=== PATIENT | male | born 1950 | race Caucasian/White ===

== ENCOUNTER 2021-08-05 14:55 | Emergency (ER) | payer MEDICARE, BC, SELFPAY ==
--- NOTE | ~2021-08-05 | XR_ITS ---
EXAMINATION: XR chest 2V DATE: 08/05/2021 15:47 INDICATION: Productive cough TECHNIQUE: AP and lateral views of the chest are obtained. COMPARISON: 07/25/2019 FINDINGS: There are minimal opacities of the lung bases and right midlung zone. No pleural effusion o r pneumothorax is identified. Median sternotomy wires and mediastinal surgical clips are seen, likely from prior coronary artery bypass grafting. There is severe thoracic spondylosis. A large hiatal her katherine is noted. Surgical clips in the upper abdomen on the lateral view are likely from prior cholecyst ectomy. IMPRESSION: 1. Opacities of the lung bases and right midlung zone which could reflect atelectasis versus pneumoni a versus pulmonary edema. Reviewed, dictated and finalized at location A. IMPRESSION: 1. Opacities of the lung bases and right midlung zone which could reflect atele ctasis versus pneumonia versus pulmonary edema.
[2021-08-05 15:09] VITALS: BP 122/76; PULSE 62; RESP 16; TEMP 36.1; O2SAT 94
--- NOTE | 2021-08-05 15:18 | ED.URI ---
HPI - URI/Sore Throat General Chief Complaint: Upper Respiratory Infection Stated Complaint: Upset Stomach,Chest Congestion Time Seen by Provider: 08/05/21 15:20 Source: patient Mode of arrival: ambulatory Limitations: no limitations History of Present Illness HPI Narrative: 71-year-old male presents to the [facility] with very vague complaints of fatigue, productive cough, upset stomach on Thursday. Has a history of agent orange, acid reflux, hiatal hernia, 2 heart attacks in the past. Denies chest pain. States when he coughs sometimes his chest does get tight. Has felt feverish and chilled. Related Data Home Medications Medication Instructions Recorded Confirmed amlodipine 10 mg tablet 10 mg PO DAILY 11/30/19 08/05/21 aspirin 81 mg tablet,delayed 81 mg PO DAILY 11/30/19 08/05/21 release atorvastatin 40 mg tablet 40 mg PO DAILY 11/30/19 08/05/21 budesonide-formoterol HFA 160 2 puff INHALATION Q12H 11/30/19 08/05/21 mcg-4.5 mcg/actuation aerosol inhaler clopidogrel 75 mg tablet 75 mg PO DAILY 11/30/19 08/05/21 ezetimibe 10 mg tablet 10 mg PO DAILY 11/30/19 08/05/21 glipizide 5 mg tablet 5 mg PO BID 11/30/19 08/05/21 hydrochlorothiazide 25 mg tablet 25 mg PO DAILY 11/30/19 08/05/21 icosapent ethyl 1 gram capsule 2 gm PO DAILY 11/30/19 08/05/21 latanoprost 0.005 % eye drops 1 drop EACH EYE DAILY 11/30/19 08/05/21 omeprazole 20 mg tablet,delayed 20 mg PO DAILY 11/30/19 08/05/21 release sertraline 100 mg tablet 100 mg PO DAILY 11/30/19 08/05/21 metformin 500 mg tablet 500 mg PO BID tablet 08/14/20 08/05/21 metoprolol succinate 25 mg capsule 12.5 mg PO BID each 08/14/20 08/05/21 sprinkle, ext. release 24 hr empagliflozin 10 mg PO DAILY 08/05/21 08/05/21 Allergies Allergy/AdvReac Type Severity Reaction Status Date / Time codeine Allergy Unknown Unknown Verified 08/05/21 15:22 Review of Systems Review of Systems: All systems reviewed & are unremarkable except as noted in HPI and below Constitutional: Constitutional: Reports as per HPI, Reports chills and Reports fever(s) (Subjective) Eyes: Eyes: Reports no additional eye complaints ENT: Reports system reviewed and no additional complaints, except as documented Cardiovascular: Cardiovascular: Reports no additional cardiovascular complaints, Denies chest pain, Denies rapid heart rate, Denies radiating jaw, neck or arm pain and Denies slow heart rate Respiratory: Respiratory: Reports as per HPI, Reports chest congestion, Reports cough, Denies dyspnea and Denies wheezing Gastrointestinal: Gastrointestinal: Reports no additional gastrointestinal complaints, Denies abdominal pain, Denies nausea and Denies vomiting Musculoskeletal: Musculoskeletal: Reports no additional musculoskeletal complaints Integumentary/Breasts: Skin/Breast: Reports system reviewed and no additional complaints, except as docu Neurologic: Reports system reviewed and no additional complaints, except as documented and Denies headache(s) Psychiatric: Psychiatric: Reports no additional psychiatric complaints Allergic/Immunologic: Allergic/Immunologic: Reports no additional allergic/immunologic complaints PMFSH Past Medical History Medical History Agent orange exposure Cataracts, both eyes Cervicalgia Coronary artery disease involving [place] artery of transplanted heart Depression Dizziness and giddiness Essential hypertension Gastrointestinal hemorrhage, unspecified Glaucoma Heartburn Hemorrhoids HTN (hypertension) Hyperlipidemia Hypokalemia USP (current) use of insulin Memory difficulties Polycythemia Rotator cuff disorder Shoulder girdle symptom Type 2 diabetes mellitus with other circulatory complications Surgical History Surgical History History of cardiac cath History of cataract surgery (~1996) History of cataract surgery (~2001) History of cholecystectomy (~1994) Histo
--- NOTE | 2021-08-05 15:26 | ECG_ITS ---
Measurements Intervals [place] Rate: 61 P: 67 CO: 210 QRS: 52 QRSD: 120 T: 11 QT: 418 QTc: 422 Interpretive Statements SINUS RHYTHM WITH FIRST DEGREE AV BLOCK INCOMPLETE RIGHT BUNDLE BRANCH BLOCK CONSIDER INFERIOR INFARCT, AGE INDETERMINATE BORDERLINE T WAVE ABNORMALITY- ANTEROLATERAL LEADS BASELINE ARTIFACT- II, III, AVF ABNORMAL ECG Electronically Signed On 08-06-2021 7:49:38 CDT by Meng Lynn D.O.
[2021-08-07 01:27] LABS: SARS-CoV-2 RNA PCR Negative
== END 2021-08-05 16:20 | disposition home or self-care (01) ==
PROVIDERS: Emergency Provider Nurse Practitioner; PCP Internal Medicine
DX: J18.9 Pneumonia, unspecified organism (principal); I25.10 Atherosclerotic heart disease of native coronary artery without angina pectoris; I10 Essential (primary) hypertension; E78.5 Hyperlipidemia, unspecified; E11.9 Type 2 diabetes mellitus without complications; Z79.82 Long term (current) use of aspirin; Z87.891 Personal history of nicotine dependence; Z20.822 Contact with and (suspected) exposure to COVID-19
CPT/HCPCS: 71046; 93005; 99213; C9803; G0463; U0003; U0005

== ENCOUNTER 2022-04-23 11:14 | Outpatient (CLI) | payer MEDICARE, BC, SELFPAY ==
[2022-04-23 11:34] LABS: Basophils Absolute Auto 0.1 K/mm3 (0.0-0.1); Basophils Percent Auto 1.1 % (0.2-1.2); Eosinophils Absolute Auto 0.3 K/mm3 (0-0.3); Eosinophils Percent Auto 3.2 % (0-4.4); Hematocrit 45.4 % (42.0-52.0); Hemoglobin 15.3 g/dL (14.0-18.0); Immature Granulocyte Absolute 0.03 K/mm3 (0.00-0.031); Immature Granulocyte Percent A 0.3 % (0-0.5); Lymphocytes Absolute Auto 1.28 K/mm3 (0.9-3.2); Lymphocytes Percent Auto 13.6 % (18.3-44.2); Mean Corpuscular HGB Conc 33.7 g/dl (32-36); Mean Corpuscular Hemoglobin 28.2 pg (26-34); Mean Corpuscular Volume 83.8 fl (80-100); Mean Platelet Volume 9.8 fl (7.4-10.4); Monocytes Absolute Auto 0.8 K/mm3 (0.1-0.6); Monocytes Percent Auto 8.4 % (2.6-8.5); Neutrophils Absolute Auto 6.9 K/mm3 (1.3-6.7); Neutrophils Percent Auto 73.4 % (45.5-73.1); Platelet Count Result 404 k/mm3 (150-375); Red Blood Count 5.42 M/mm3 (4.6-6.20); Red Cell Distribution Width 14.6 % (11.5-14.5); White Blood Count 9.4 K/mm3 (4.5-10.0)
[2022-04-23 11:53] LABS: Cholesterol 110 mg/dL (0-200); HDL Direct 35 mg/dL; Triglycerides 113 mg/dL (<150)
[2022-04-23 12:03] LABS: Creatinine Urine 161.6 mg/dL
[2022-04-23 12:04] LABS: LDL Cholesterol Direct 46 mg/dL
[2022-04-23 12:08] LABS: MALB Creatinine Ratio 6.6 mg/g (0-30); Microalbumin Urine Random 10.6 mg/L (0-16.7)
[2022-04-23 12:23] LABS: Prostate Specific Antigen 0.7 ng/mL (< OR = 4.0)
== END 2022-04-23 11:15 | disposition home or self-care (01) ==
PROVIDERS: PCP Internal Medicine; Visit Provider Internal Medicine
DX: Z12.5 Encounter for screening for malignant neoplasm of prostate (principal); E11.59 Type 2 diabetes mellitus with other circulatory complications; I10 Essential (primary) hypertension
CPT/HCPCS: 36415; 80061; 82043; 84153; 85025; G0103

== ENCOUNTER 2022-05-16 11:18 | Outpatient (CLI) | payer MEDICARE, BC, SELFPAY ==
[2022-05-16 12:19] LABS: Basophils Absolute Auto 0.1 K/mm3 (0.0-0.1); Basophils Percent Auto 1.2 % (0.2-1.2); Eosinophils Absolute Auto 0.5 K/mm3 (0-0.3); Eosinophils Percent Auto 5.7 % (0-4.4); Hemoglobin 15.2 g/dL (14.0-18.0); Immature Granulocyte Absolute 0.03 K/mm3 (0.00-0.031); Immature Granulocyte Percent A 0.4 % (0-0.5); Lymphocytes Absolute Auto 1.16 K/mm3 (0.9-3.2); Lymphocytes Percent Auto 14.3 % (18.3-44.2); Mean Corpuscular HGB Conc 33.8 g/dl (32-36); Mean Corpuscular Hemoglobin 28.1 pg (26-34); Mean Corpuscular Volume 83.3 fl (80-100); Mean Platelet Volume 10.4 fl (7.4-10.4); Monocytes Absolute Auto 0.6 K/mm3 (0.1-0.6); Monocytes Percent Auto 7.8 % (2.6-8.5); Neutrophils Absolute Auto 5.7 K/mm3 (1.3-6.7); Neutrophils Percent Auto 70.6 % (45.5-73.1); Platelet Count Result 338 k/mm3 (150-375); Red Cell Distribution Width 15.2 % (11.5-14.5); White Blood Count 8.1 K/mm3 (4.5-10.0)
[2022-05-16 12:51] LABS: Alanine Aminotransferase 37 U/L (6-50); Albumin Level 3.9 g/dL (3.5-5.1); Alkaline Phosphatase 83 U/L (38-126); Anion Gap 5 mmol/L (8-16); Aspartate Amino Transferase 28 U/L (17-59); Bilirubin,Total 0.7 mg/dL (0.2-1.3); Blood Urea Nitrogen 15 mg/dL (9-20); Calcium 8.9 mg/dL (8.4-10.2); Carbon Dioxide 29 mmol/L (22-30); Chloride 103 mmol/L (98-107); Cholesterol 139 mg/dL (0-200); Estimated Glomerular Filt Rate > 60; Glucose 154 mg/dL (65-110); HDL Direct 35 mg/dL; Sodium 137 mmol/L (137-145); Triglycerides 134 mg/dL (<150)
[2022-05-16 14:07] LABS: Microalbumin Urine Random 11.7 mg/L (0-16.7)
[2022-05-16 14:09] LABS: Creatinine Urine 178.4 mg/dL; MALB Creatinine Ratio 6.6 mg/g (0-30)
[2022-05-16 14:13] LABS: Erythrocyte Sedimentation Rate 8 mm/hr (0-20)
[2022-05-16 14:15] LABS: Folic Acid 13.6 ng/mL (2.76->20)
[2022-05-16 20:07] LABS: LDL Cholesterol Direct 62 mg/dL
== END 2022-05-16 11:19 | disposition home or self-care (01) ==
LOC: ANHLAB 11:19
PROVIDERS: PCP Internal Medicine; Visit Provider Internal Medicine
DX: E11.9 Type 2 diabetes mellitus without complications (principal); R53.83 Other fatigue; R41.3 Other amnesia; E11.59 Type 2 diabetes mellitus with other circulatory complications
CPT/HCPCS: 36415; 80053; 80061; 82043; 82607; 82746; 83036; 84443; 85025; 85652

== ENCOUNTER 2022-05-29 08:43 | Emergency (ER) | payer MEDICARE, BC, SELFPAY ==
[2022-05-29] VITALS (24 sets, daily range): BP systolic 119–155; BP diastolic 66–106; PULSE 72–85; RESP 12–29; TEMP 37.4; O2SAT 92–96
--- NOTE | ~2022-05-29 | XR_ITS ---
XR chest 1V portable 05/29/2022 09:48 Indication: Chest pain. Covid. Procedure: AP portable chest Comparison: Comparison to multiple prior studies sequentially, with oldest reviewed study dated 04/28. Findings: Status post median sternotomy for CABG. Cardiomegaly. Left basilar infiltrates, atelectasis versus pneumonia. No significant effusion, edema or pneumothorax. Impression: 1: Left basilar infiltrates, most likely atelectasis or pneumonia. 2: Cardiomegaly. Reviewed, dictated and finalized at location L. Impression: 1: Left basilar infiltrates, most likely atelectasis or pneumonia. 2: Cardiomegaly.
--- NOTE | 2022-05-29 09:04 | ECG_ITS ---
Measurements Intervals [place] Rate: 75 P: 34 [place]: 181 QRS: 7 QRSD: 125 T: 11 QT: 399 QTc: 447 Interpretive Statements SINUS RHYTHM RIGHT BUNDLE BRANCH BLOCK ABNORMAL ECG Electronically Signed On 05-29-2022 9:49:33 CDT by Meng Lynn D.O.
[2022-05-29] MEDS: ASPIRIN 81 MG CHEWABLE TABLET 324 MG PO (09:09)
[2022-05-29 09:22] LABS: Basophils Absolute Auto 0.1 K/mm3 (0.0-0.1); Basophils Percent Auto 1.2 % (0.2-1.2); Eosinophils Absolute Auto 0.2 K/mm3 (0-0.3); Eosinophils Percent Auto 3.6 % (0-4.4); Hematocrit 44.8 % (42.0-52.0); Hemoglobin 14.4 g/dL (14.0-18.0); Immature Granulocyte Absolute 0.01 K/mm3 (0.00-0.031); Immature Granulocyte Percent A 0.2 % (0-0.5); Lymphocytes Absolute Auto 0.57 K/mm3 (0.9-3.2); Lymphocytes Percent Auto 9.5 % (18.3-44.2); Mean Corpuscular HGB Conc 32.1 g/dl (32-36); Mean Corpuscular Hemoglobin 27.5 pg (26-34); Mean Corpuscular Volume 85.7 fl (80-100); Monocytes Absolute Auto 1.1 K/mm3 (0.1-0.6); Monocytes Percent Auto 17.9 % (2.6-8.5); Neutrophils Absolute Auto 4.1 K/mm3 (1.3-6.7); Neutrophils Percent Auto 67.6 % (45.5-73.1); Platelet Count Result 300 k/mm3 (150-375); Red Blood Count 5.23 M/mm3 (4.6-6.20); Red Cell Distribution Width 14.6 % (11.5-14.5)
[2022-05-29 09:30] LABS: Alanine Aminotransferase 43 U/L (6-50); Albumin Level 4.2 g/dL (3.5-5.1); Alkaline Phosphatase 86 U/L (38-126); Anion Gap 9 mmol/L (8-16); Aspartate Amino Transferase 35 U/L (17-59); Bilirubin,Total 0.4 mg/dL (0.2-1.3); Blood Urea Nitrogen 10 mg/dL (9-20); Calcium 8.9 mg/dL (8.4-10.2); Carbon Dioxide 29 mmol/L (22-30); Chloride 97 mmol/L (98-107); Estimated CRCL calculation 82 ml/min; Estimated Glomerular Filt Rate > 60; Glucose 295 mg/dL (65-110); Lipase 93 U/L (23-300); Sodium 135 mmol/L (137-145)
[2022-05-29 09:37] LABS: Prothrombin Time 12.9 Seconds (11.1-14.7)
[2022-05-29 09:38] LABS: Partial Thromboplastin Time 25.3 SECONDS (22.3-36.8)
[2022-05-29 09:49] LABS: Troponin I < 0.012 ng/mL (0.000-0.034)
[2022-05-29 09:54] LABS: D Dimer < 0.27 ug/mL (<0.48)
--- NOTE | 2022-05-29 10:21 | ED.CHESTPAIN ---
HPI - Chest Pain General Chief Complaint: Chest Pain Stated Complaint: Chest Tightness, COVID + Time Seen by Provider: 05/29/22 08:47 Source: patient, RN notes reviewed and old records reviewed Mode of arrival: ambulatory Limitations: no limitations History of Present Illness HPI narrative: This is a 72 year old male with history of hypertension, CAD s/p CABG, stents who presents for evaluation of chest tightness and covid +. Patient developed symptoms of covid on Thursday. He reports body aches and cough. Last night he developed midsternal chest tightness. He states this tightness has been nonradiating. He also states his pain is not exertional. He reports nausea but no vomiting or diarrhea. 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 He does not have chest pain at this time. MD complaint: chest pain Pertinent past history: coronary artery disease and CABG Related Data Home Medications Medication Instructions Recorded Confirmed amlodipine 10 mg tablet 10 mg PO DAILY 11/30/19 05/13/22 aspirin 81 mg tablet,delayed 81 mg PO DAILY 11/30/19 05/13/22 release (Adult Aspirin Regimen) budesonide-formoterol HFA 160 2 puff inhalation Q12H 11/30/19 05/13/22 mcg-4.5 mcg/actuation aerosol inhaler (Symbicort) clopidogrel 75 mg tablet 75 mg PO DAILY 11/30/19 05/13/22 glipizide 5 mg tablet 5 mg PO BID 11/30/19 05/13/22 icosapent ethyl 1 gram capsule 2 gm PO DAILY 11/30/19 05/13/22 (Vascepa) latanoprost 0.005 % eye drops 1 drop ophthalmic (eye) DAILY 11/30/19 05/13/22 omeprazole 20 mg tablet,delayed 20 mg PO DAILY 11/30/19 05/13/22 release sertraline 100 mg tablet 100 mg PO DAILY 11/30/19 05/13/22 metformin 500 mg tablet 500 mg PO BID 08/14/20 05/13/22 metoprolol succinate 25 mg capsule 12.5 mg PO BID 08/14/20 05/13/22 sprinkle, ext. release 24 hr empagliflozin 10 mg tablet 10 mg PO DAILY 08/05/21 05/13/22 Allergies Allergy/AdvReac Type Severity Reaction Status Date / Time codeine Allergy Unknown Unknown Verified 05/13/22 13:32 Review of Systems Review of Systems: All systems reviewed & are unremarkable except as noted in HPI and below Constitutional: Constitutional: Reports chills and Reports fever(s) ENT: Denies nasal congestion and Denies sore throat Cardiovascular: Cardiovascular: Reports chest pain, Denies rapid heart rate and Denies radiating jaw, neck or arm pain Respiratory: Respiratory: Denies chest congestion, Reports cough and Reports dyspnea (chronic) Gastrointestinal: Gastrointestinal: Reports nausea and Denies vomiting Genitourinary: Genitourinary: Denies hematuria [facility] Past Medical History Medical History (Updated 05/29/22 @ 13:08 by Ele Seth MD) Agent orange exposure Cataracts, both eyes Cervicalgia Coronary artery disease involving [place] artery of transplanted heart Depression Dizziness and giddiness Essential hypertension Gastrointestinal hemorrhage, unspecified Glaucoma Heartburn Hemorrhoids HTN (hypertension) Hyperlipidemia Hypokalemia 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 Memory difficulties Polycythemia Rotator cuff disorder Shoulder girdle symptom Type 2 diabetes mellitus with other circulatory complications Surgical History Surgical History History of cardiac cath History of cataract surgery (~1996) History of cataract surgery (~2001) History of cholecystectomy (~1994) History of heart artery stent History of hernia surgery (~2006) Status post double vessel coronary artery bypass (~1985) Status post double vessel coronary artery bypass (~2000) Family History Family History Unknown Heart disease Other Family history of alcoholism Hypertension Social History Social History Smoking status: Former smoker Smoking end date: 11/09/84 Alcohol intake: current Alcohol use details: [facility]
[2022-05-29] MEDS: metFORMIN HCL 500 MG TABLET 1000 MG PO (10:51)
[2022-05-29] MEDS: glipiZIDE 5 MG TABLET PO (10:51)
--- NOTE | 2022-05-29 11:26 | PC.NURSE ---
Consistent Carb tray ordered for pt.
[2022-05-29 12:24] LABS: Troponin I < 0.012 ng/mL (0.000-0.034)
== END 2022-05-29 13:25 | disposition home or self-care (01) ==
PROVIDERS: Emergency Provider General Practice; PCP Internal Medicine
DX: U07.1 COVID-19 (principal); R07.89 Other chest pain; I10 Essential (primary) hypertension; I25.811 Atherosclerosis of native coronary artery of transplanted heart without angina pectoris; F32.A Depression, unspecified; H40.9 Unspecified glaucoma; E78.5 Hyperlipidemia, unspecified; E11.59 Type 2 diabetes mellitus with other circulatory complications; Z95.1 Presence of aortocoronary bypass graft; Z79.84 Long term (current) use of oral hypoglycemic drugs; Z79.82 Long term (current) use of aspirin; Z98.42 Cataract extraction status, left eye; Z98.41 Cataract extraction status, right eye; Z95.5 Presence of coronary angioplasty implant and graft; Z87.891 Personal history of nicotine dependence; I51.7 Cardiomegaly; R91.8 Other nonspecific abnormal finding of lung field; I45.10 Unspecified right bundle-branch block
CPT/HCPCS: 36415; 71045; 80053; 83690; 84484; 85025; 85380; 85610; 85730; 93005; 99284; A9270

== ENCOUNTER 2022-05-31 12:27 | Inpatient (IN) | payer MEDICARE, BC, SELFPAY ==
[2022-05-31] VITALS (9 sets, daily range): BP systolic 94–114; BP diastolic 54–74; PULSE 56–80; RESP 13–22; TEMP 36.6; O2SAT 88–99; BMI 28.0
--- NOTE | ~2022-05-31 | XR_ITS ---
XR chest 1V portable 05/31/2022 13:07 Indication: Covid positive. Chest pain. Shortness of breath. Procedure: AP portable chest Comparison: Comparison to multiple prior studies sequentially, with oldest reviewed study dated 04/2014. Findings: Status post median sternotomy for CABG. Mild interstitial edema. No pleural effusion or pne umothorax. No acute osseous abnormality. Impression: 1: Mild interstitial edema. Reviewed, dictated and finalized at location A. Impression: 1: Mild interstitial edema.
--- NOTE | ~2022-05-31 | MR_ITS ---
EXAMINATION: MR abdomen wo/w con DATE: 06/01/2022 12:23 INDICATION: Renal mass TECHNIQUE: Magnetic resonance imaging (MRI) of the abdomen was performed without and with 17 mL Multi dez intravenous contrast. Sequences included coronal T2-weighted SS-FSE, coronal and axial FS 2D-F IESTA, axial STIR FSE, axial T2-weighted SS-FSE, axial T2-weighted FS SS-FSE, axial diffusion-weighte d SE, axial dual-echo T1-weighted FSPGR, and axial and coronal T1-weighted LAVA. Postcontrast axial T 1-weighted LAVA images were obtained in a time course. Postcontrast coronal T1-weighted LAVA images w ere obtained. COMPARISON: CT dated 05/31/2022 FINDINGS: Large sliding-type hiatal hernia with organoaxial volvulus of the intrathoracic portion of the stomac h. Mild cardiomegaly. No pericardial effusion. Multiple focus of metallic magnetic field artifact ass ociated with cholecystectomy clips the gallbladder fossa. Pancreas, spleen, bilateral adrenal glands and left kidney are normal. Along the anterior lower pole of the otherwise normal right kidney is a l arge cystic structure measuring up to 4.9 x 4.3 cm in maximal transaxial dimensions and extending 11. 4 cm craniocaudally into the right lower quadrant where it appears closely associated with an potenti ally arising from a loop of ileum. There is heterogeneous signal intensity within the lesion which is predominantly T2 hyperintense and T1 hypointense. There is a crescentic region of very low T2 signal with slightly increased T1 signal which corresponds to the region of increased attenuation on the pr ior CT which is equivocal for calcification versus potentially active extravasation. No definitive in ternal enhancement to suggest solid neoplasm. In addition review of lumbar spine MRI dated 07/09/2015 demonstrates a similar but milder T2 hyperintense lesion at that time appeared to represent a short s egment of fluid-filled bowel. There appears to be a very thin hyperintense fat plane betwe en the lesion and the kidney on the axial FIESTA ASPIR and post contrast LAVA sequences consistent wi th an extrarenal origin. The appearance, location configuration of the lesion suggests this most like ly represents a Meckel's diverticulum with with some internal clot potentially related to what is lik arnol a small amount of active extravasation at the time of the prior CT. The remainder the visualized bowels are unremarkable. No pathologically enlarged abdominal lymphadenopathy. Normal bone marrow sig nal throughout. IMPRESSION: 1. Nonspecific 11.4 x 4.9 x 4.3 cm complex cystic lesion which abuts but does not appear to arise fro m the lower pole of the left kidney but which extends caudally to the right lower quadrant where it a buts a segment of small bowel. Appearance, location and configuration suggests a possible Meckel's di verticulum containing a small amount of blood products likely related to active extravasation based u raj appearance on prior CT. 2. Large sliding-type hiatal hernia with organoaxial pelvis of the intrathoracic portion of the stoma ch. Reviewed, dictated and finalized at location A. IMPRESSION: 1. Nonspecific 11.4 x 4.9 x 4.3 cm complex cystic lesion which abuts but does n ot appear to arise from the lower pole of the left kidney but which extends cau dally to the right lower quadrant where it abuts a segment of small bowel. Appe arance, location and configuration suggests a possible Meckel's diverticulum co ntaining a small amount of blood products likely related to active extravasatio n based upon appearance on prior CT. 2. Large sliding-type hiatal hernia with organoaxial pelvis of the intrathoraci c portion of the stomach.
--- NOTE | ~2022-05-31 | CT_ITS ---
EXAMINATION: CTA chest PE protocol DATE: 05/31/2022 14:57 INDICATION: sob, chest pain, covid, rule out PE TECHNIQUE: Computed tomography angiography (CTA) of the chest was performed with 100 mL Omnipaque-350 intravenous contrast timed to evaluate the pulmonary arteries. Coronal maximum intensity projection 3D-reconstructions were created by the technologist. The dose-length product (DLP) was 1085.48 mGy-cm . Automated exposure control and iterative reconstruction technique were employed. COMPARISON: X-ray chest, same date. FINDINGS: Study quality: Adequate. Pulmonary arteries: No pulmonary emboli detected. Thoracic aorta: Mild ectasia and arch calcification.. Lung parenchyma and airways: Minimal interstitial edema. Airways clear. Thoracic inlet, axillae and chest wall: Unremarkable. Mediastinum: Status post CABG. Large hiatal hernia. Heart and pericardium: Cardiomegaly. Coronary artery calcifications: Heavy. Pleura: Unremarkable. Upper abdomen: 5.2 cm right upper quadrant peripherally calcified and/or enhancing mass, likely an ex ophytic right renal mass. Bones: No acute osseous finding. IMPRESSION: No CT evidence of acute pulmonary embolus. 5.2 cm calcified and/or enhancing exophytic right renal ma ss. Recommend nonemergent but timely MR of the kidneys for further evaluation. Reviewed, dictated and finalized at [facility]. IMPRESSION: No CT evidence of acute pulmonary embolus. 5.2 cm calcified and/or enhancing ex ophytic right renal mass. Recommend nonemergent but timely MR of the kidneys fo r further evaluation.
--- NOTE | 2022-05-31 12:35 | ECG_ITS ---
Measurements Intervals [place] Rate: 67 P: 19 [place]: 184 QRS: -2 QRSD: 116 T: 11 QT: 419 QTc: 445 Interpretive Statements SINUS RHYTHM POSSIBLE LEFT ATRIAL ENLARGEMENT INTRAVENTRICULAR CONDUCTION DELAY BORDERLINE R WAVE PROGRESSION, ANTERIOR LEADS BORDERLINE T WAVE ABNORMALITY- INFERIOR LEADS BORDERLINE ECG Electronically Signed On 05-31-2022 17:01:23 CDT by Meng Lynn D.O.
[2022-05-31] MEDS: SODIUM CHLORIDE 0.9% IV 1,000 ML 999 ML IV CONT (13:11)
[2022-05-31 13:26] LABS: Alveolar/Arterial O2 Gradient 32.1 mmHg; Base Excess ABG 2.2 mEq/l (+/-2.0); Carboxyhemoglobin 0.6 % THb (0-2.0); Fractional Inspired Oxygen 21 %; HCO3 ABG 26.6 mEq/l (22.0-26.0); Methemoglobin ABG 0.3 %THb (0-1.5); Oxygen Content ABG 19.8 %vol (16.0-22.0); Oxygen Saturation ABG 94.3 % (95.0-100.0); Oxyhemoglobin 91.9 % THb (90.0-100.0); PCO2 ABG 40.7 mmHg (35.0-45.0); PO2 ABG 68.9 mmHg (80.0-100.0); PO2 FiO2 Ratio Arterial Blood 3.28 %; Reduced Hemoglobin 7.2 %THb (0-5.0); Total Hemoglobin 15.3 g/dL (12.0-18.0); pH ABG 7.433 (7.350-7.450)
[2022-05-31 13:27] LABS: Device ROOM AIR; Site Drawn LEFT BRACHIAL
[2022-05-31 13:31] LABS: SARS-CoV-2 RNA PCR Positive
[2022-05-31 13:38] LABS: Basophils Percent Auto 0.7 % (0.2-1.2); Eosinophils Percent Auto 0.4 % (0-4.4); Hematocrit 46.2 % (42.0-52.0); Hemoglobin 14.7 g/dL (14.0-18.0); Immature Granulocyte Absolute 0.01 K/mm3 (0.00-0.031); Immature Granulocyte Percent A 0.2 % (0-0.5); Lymphocytes Absolute Auto 0.75 K/mm3 (0.9-3.2); Lymphocytes Percent Auto 16.4 % (18.3-44.2); Mean Corpuscular HGB Conc 31.8 g/dl (32-36); Mean Corpuscular Hemoglobin 27.3 pg (26-34); Mean Corpuscular Volume 85.9 fl (80-100); Mean Platelet Volume 9.6 fl (7.4-10.4); Monocytes Absolute Auto 0.5 K/mm3 (0.1-0.6); Monocytes Percent Auto 11.4 % (2.6-8.5); Neutrophils Absolute Auto 3.2 K/mm3 (1.3-6.7); Neutrophils Percent Auto 70.9 % (45.5-73.1); Platelet Count Result 286 k/mm3 (150-375); Red Blood Count 5.38 M/mm3 (4.6-6.20); Red Cell Distribution Width 14.6 % (11.5-14.5); White Blood Count 4.6 K/mm3 (4.5-10.0)
[2022-05-31 13:49] LABS: Alanine Aminotransferase 62 U/L (6-50); Albumin Level 3.9 g/dL (3.5-5.1); Alkaline Phosphatase 90 U/L (38-126); Anion Gap 10 mmol/L (8-16); Aspartate Amino Transferase 47 U/L (17-59); Bilirubin,Total 0.6 mg/dL (0.2-1.3); Blood Urea Nitrogen 24 mg/dL (9-20); Calcium 8.7 mg/dL (8.4-10.2); Carbon Dioxide 27 mmol/L (22-30); Chloride 100 mmol/L (98-107); Estimated CRCL calculation 75 ml/min; Estimated Glomerular Filt Rate > 60; Glucose 171 mg/dL (65-110); Lipase 53 U/L (23-300); Potassium 4.1 mmol/L (3.4-5.0); Sodium 137 mmol/L (137-145)
[2022-05-31 13:50] LABS: Partial Thromboplastin Time 22.8 SECONDS (22.3-36.8)
--- NOTE | 2022-05-31 14:00 | ED.GENADULT ---
HPI - General Adult General Chief complaint: Dizziness Stated complaint: COVID +, Weakness, SOB Time Seen by Provider: 05/31/22 12:30 Source: patient, EMS and RN notes reviewed Mode of arrival: EMS Limitations: no limitations History of Present Illness HPI narrative: This is a 72 year old male with history of heart disease, hypertension, hyperlipidemia and DM who presents for evaluation of weakness and shortness of breath. Patient developed symptoms of COVID on Thursday. He came to ER 2 days ago for intermittent chest tightness. It was recommended for patient to be admitted for observation given his cardiac history. Patient declined admission on that visit. He states he has been having mild nonradiating chest tightness still. He states it has been minor. Today he has been feeling shortness of breath and dizzy. He states he feels like he is going to pass out. He denies fever or chills. EMS reports patient's room air oxygen saturation was in the mid 80s. Related Data Home Medications Medication Instructions Recorded Confirmed amlodipine 10 mg tablet 10 mg PO DAILY 11/30/19 05/13/22 aspirin 81 mg tablet,delayed 81 mg PO DAILY 11/30/19 05/13/22 release (Adult Aspirin Regimen) budesonide-formoterol HFA 160 2 puff inhalation Q12H 11/30/19 05/13/22 mcg-4.5 mcg/actuation aerosol inhaler (Symbicort) clopidogrel 75 mg tablet 75 mg PO DAILY 11/30/19 05/13/22 glipizide 5 mg tablet 5 mg PO BID 11/30/19 05/13/22 icosapent ethyl 1 gram capsule 2 gm PO DAILY 11/30/19 05/13/22 (Vascepa) latanoprost 0.005 % eye drops 1 drop ophthalmic (eye) DAILY 11/30/19 05/13/22 omeprazole 20 mg tablet,delayed 20 mg PO DAILY 11/30/19 05/13/22 release sertraline 100 mg tablet 100 mg PO DAILY 11/30/19 05/13/22 metformin 500 mg tablet 500 mg PO BID 08/14/20 05/13/22 metoprolol succinate 25 mg capsule 12.5 mg PO BID 08/14/20 05/13/22 sprinkle, ext. release 24 hr empagliflozin 10 mg tablet 10 mg PO DAILY 08/05/21 05/13/22 Allergies Allergy/AdvReac Type Severity Reaction Status Date / Time codeine Allergy Unknown Nausea and Verified 05/31/22 12:49 Vomiting Review of Systems Review of Systems: All systems reviewed & are unremarkable except as noted in HPI and below Constitutional: Constitutional: Reports fatigue Eyes: Eyes: Denies change in vision ENT: Reports nasal congestion Cardiovascular: Cardiovascular: Denies chest pain and Denies radiating jaw, neck or arm pain Respiratory: Respiratory: Reports chest congestion and Reports cough Gastrointestinal: Gastrointestinal: Denies abdominal pain, Denies bloating, Reports diarrhea, Denies nausea and Denies vomiting Neurologic: Reports dizziness and Denies headache(s) [facility] Past Medical History Medical History Agent orange exposure Cataracts, both eyes Cervicalgia Coronary artery disease involving [place] artery of transplanted heart Depression Dizziness and giddiness Essential hypertension Gastrointestinal hemorrhage, unspecified Glaucoma Heartburn Hemorrhoids HTN (hypertension) Hyperlipidemia Hypokalemia 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 Memory difficulties Polycythemia Rotator cuff disorder Shoulder girdle symptom Type 2 diabetes mellitus with other circulatory complications Surgical History Surgical History History of cardiac cath History of cataract surgery (~1996) History of cataract surgery (~2001) History of cholecystectomy (~1994) History of heart artery stent History of hernia surgery (~2006) Status post double vessel coronary artery bypass (~1985) Status post double vessel coronary artery bypass (~2000) Family History Family History Unknown Heart disease Other Family history of alcoholism Hypertension Social History Social History (Reviewed 05/31/22 @
[2022-05-31 14:02] LABS: NT Pro B Type Natriuretic Pept 35 pg/mL (5-100); Troponin I < 0.012 ng/mL (0.000-0.034)
[2022-05-31 14:11] LABS: Appearance Urine Clear (Clear); Bilirubin Urine Negative (Negative); Blood Urine Negative (Negative); Color Urine Yellow (Yellow); Glucose Urine UA 2+ mg/dL (Negative); Ketones Urine Negative (Negative); Leukocyte Esterase Ur Negative LEU/UL (Negative); Nitrate Urine Negative (Negative); Protein Urine Negative (Negative); Specific Grav Ur 1.015 (1.001-1.035); Urobilinogen Urine 0.2 mg/dL (<2.0)
[2022-05-31 14:23] LABS: Mucus Urine Rare /lpf; RBC Urine 0-2 /hpf (0-2); Squamous Epithelial Cell Urine Rare /hpf (Few); WBC Urine 0-3 /hpf
[2022-05-31 14:26] LABS: Add Urine Microscopic? YES
[2022-05-31 16:16] LABS: Troponin I < 0.012 ng/mL (0.000-0.034)
--- NOTE | 2022-05-31 16:53 | PM.IMHP ---
H&P: HPI History of Present Illness Date/Time: 05/31/22 16:00 Chief Complaint: Dyspneic, COVID +, Weakness and Dizziness Narrative: This very pleasant 72-year-old male patient with significant past medical history Agent [place] exposure, status post coronary artery disease with bypass, cervicalgia, depression, hypertension, GI bleed, hyperlipidemia and diabetes mellitus who is fully vaccinated against COVID-19 presents to the emergency room for the 2nd time this week with complaints of having widespread body aches, weakness, dry cough, vague chest pain and today dyspnea. He was found to be hypoxic with oxygen saturations in the mid 80s upon EMS arrival. It is in addition patient endorses having diarrhea this morning without any nausea and or vomiting. He denies any abdominal pain. When he was here earlier this week, now 2 days ago, ER physician wanted to keep patient but he insisted upon returning home. Paxlovid was ordered however the patient never got it filled, and therefore he has not taken it. Upon arrival to the emergency room workup was started. His COVID swab was positive. CBC is negative for any remarkable findings as his metabolic panel. Troponin was normal today and it was also normal as compared to 2 days ago. BNP is 35. EKG shows normal sinus rhythm 67 beats per minute without any acute ectopy or ischemia. ABG is significant for a PO2 of 68.9 on room air. His pH is 7.433 and pCO2 was 40.7. Chest x-ray shows some interstitial edema, CTA of the chest was performed that shows the same without any pulmonary emboli. There is a coincidentally noted renal mass noted on CTA that further workup is suggested 4 and should be done as an outpatient once patient recovers. Patient is being admitted to the hospitalist service at this time for continued monitoring and observation specifically given has cardiac history. He is being started on Remdesivir as he meets criteria with requiring supplemental oxygen and he will be continued on steroids and will have repeat labs. He is agreeable to this POC at this time. 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 Memory difficulties Polycythemia Rotator cuff disorder Shoulder girdle symptom Type 2 diabetes mellitus with other circulatory complications Surgical History Surgical History History of cardiac cath History of cataract surgery (~1996) History of cataract surgery (~2001) History of cholecystectomy (~1994) History of heart artery stent History of hernia surgery (~2006) Status post double vessel coronary artery bypass (~1985) Status post double vessel coronary artery bypass (~2000) Family History Family History Unknown Heart disease Other Family history of alcoholism Hypertension Social History Social History Smoking status: Former smoker Smoking end date: 11/09/84 Alcohol intake: current Alcohol use details: occasionally Meds Home Medications and Allergies Home Medications Medication Instructions Recorded Confirmed Type amlodipine 10 mg tablet 10 mg PO DAILY 11/30/19 05/13/22 History aspirin 81 mg tablet,delayed 81 mg PO DAILY 11/30/19 05/13/22 History release (Adult Aspirin Regimen) budesonide-formoterol HFA 160 2 puff inhalation Q12H 11/30/19 05/13/22 History mcg-4.5
[2022-05-31] MEDS: REMDESIVIR 200 MG/NS 250 ML 200 MG/250 ML BAG 250 MG IVPB (17:52)
--- NOTE | 2022-05-31 18:32 | ADMGEN ---
This patient, Andres Hay Jr., was admitted to Medical Room 242-01. Patient/family oriented to hospital policies and general routines including ID bracelet, bed and alarms, visiting hours, pain management, procedures, bathroom and other care routines, personal items, smoking policy, room service/diet, and visiting hours. Information on how to activate the Rapid Response Team has been discussed. Patient/Family are encouraged to report perceived risks to care and to ask questions if they do not understand what they are told or what they should do.
[2022-05-31 19:17] LABS: Alanine Aminotransferase 57 U/L (6-50); Estimated CRCL calculation 75 ml/min; Estimated Glomerular Filt Rate > 60
[2022-05-31 19:22] LABS: INR 1.1; Prothrombin Time 13.4 Seconds (11.1-14.7)
[2022-05-31 19:28] LABS: Troponin I < 0.012 ng/mL (0.000-0.034)
[2022-05-31 19:41] LABS: Hemoglobin A1C 8.1 % (<5.7)
[2022-05-31 20:02] LABS: Thyroid Stimulating Hormone Reflex 0.675 uIU/mL (0.465-4.68)
[2022-05-31 21:44] LABS: Troponin I < 0.012 ng/mL (0.000-0.034)
[2022-05-31 22:09] LABS: Glucose Point of Care 322 mg/dl (65-105)
[2022-06-01] VITALS (13 sets, daily range): BP systolic 105–120; BP diastolic 55–71; PULSE 56–73; RESP 15–18; TEMP 36.1–36.7; O2SAT 92–98
[2022-06-01] MEDS: METOPROLOL TARTRATE 25 MG TABLET PO ×3 (00:02→21:35)
[2022-06-01 05:22] LABS: Alanine Aminotransferase 50 U/L (6-50); Estimated CRCL calculation 75 ml/min; Estimated Glomerular Filt Rate > 60
[2022-06-01 07:35] LABS: Glucose Point of Care 130 mg/dl (65-105)
[2022-06-01] MEDS: UMECLIDINIUM BROMIDE 62.5 MCG ELLIPTA 1 PUFF INHALATION (08:45)
--- NOTE | 2022-06-01 09:33 | P.PNIM_ITS ---
Progress Note: A&P Assessment and Plan (1) COVID-19: Code(s): U07.1 - COVID-19 Status: Acute Assessment and Plan: symptom onset 05/27/2022 with home positive COVID test on 05/28. Confirmatory PCR at this facility positive on 05/31 * CXR with mild interstitial edema, no evidence of pneumonia * patient requiring 2 L supplemental oxygen * continue dexamethasone and Remdesivir given oxygen requirements * supportive care. Bronchodilators, expectorants, incentive spirometry * continue isolation precautions * patient completed COVID vaccine and 1 booster (2) Hypoxia: Code(s): R09.02 - Hypoxemia Status: Acute Assessment and Plan: patient hypoxic on presentation and to 88% * secondary to COVID-19 * CTA of the chest with no evidence of pulmonary embolism * mild interstitial edema on imaging, however patient appears euvolemic on exam. monitor volume status * continue supplemental oxygen as needed. Wean to goal 92% or above (3) Weakness: Code(s): R53.1 - Weakness Status: Acute Assessment and Plan: secondary to acute viral illness * TSH and B12 within normal limits * appreciate PT/OT eval (4) HTN (hypertension): Qualifiers: Hypertension type: essential hypertension Qualified Code(s): I10 - Essential (primary) hypertension Code(s): I10 - Essential (primary) hypertension Status: Chronic Assessment and Plan: blood pressures reviewed and have been stable. last BP 120/71 * continue amlodipine, hydrochlorothiazide, losartan * monitor BP trends (5) Diabetes mellitus: Qualifiers: Diabetes mellitus type: type 2 Diabetes mellitus nursing home insulin use: without long term care administrator use Diabetes mellitus complication status: with circulatory complication Diabetes mellitus complication detail: with other circulatory complications Qualified Code(s): E11.59 - Type 2 diabetes mellitus with other circulatory complications Code(s): E11.9 - Type 2 diabetes mellitus without complications Status: Chronic Assessment and Plan: A1c is 8.1. * Monitor Accu-Cheks, sliding scale insulin, hypoglycemic protocol * oral hypoglycemics on hold. * Patient's reports he takes Lantus at home which is not on his medication list. She will be bringing in an updated medication list and insulin regimen will be resumed as appropriate after reviewing (6) CAD (coronary artery disease): Code(s): I25.10 - Atherosclerotic heart disease of [place] coronary artery without angina pectoris Status: Chronic Assessment and Plan: patient with significant heart disease history. No acute issues at this time * troponin negative * patient asymptomatic * continue dual anti-platelet therapy and statin therapy (7) Renal mass: Code(s): N28.89 - Other specified disorders of kidney and ureter Status: Acute Assessment and Plan: CTA of the chest with incidental finding of renal mass * 5.2 cm calcified and/or enhancing exophytic right renal mass * discussed with patient and . Plan to proceed with MRI during admission Subjective Date/time seen: 06/01/22 09:33 Interval history: Date of service: 06/01/2022 Andres Hay is a 72 year old male with a history of agent orange exposure, CAD, hypertension, Hyperlipidemia, type 2 diabetes mellitus who is seen in follow-up for COVID-19. He feels weak and fatigued today. He endorses dry, hacking cough. Denies sputum production. He end
--- NOTE | 2022-06-01 09:33 | PM.IMPN ---
Progress Note: A&P Assessment and Plan (1) COVID-19: Code(s): U07.1 - COVID-19 Status: Acute Assessment and Plan: symptom onset 05/27/2022 with home positive COVID test on 05/28. Confirmatory PCR at this facility positive on 05/31 CXR with mild interstitial edema, no evidence of pneumonia patient requiring 2 L supplemental oxygen continue dexamethasone and Remdesivir given oxygen requirements supportive care. Bronchodilators, expectorants, incentive spirometry continue isolation precautions patient completed COVID vaccine and 1 booster (2) Hypoxia: Code(s): R09.02 - Hypoxemia Status: Acute Assessment and Plan: patient hypoxic on presentation and to 88% secondary to COVID-19 CTA of the chest with no evidence of pulmonary embolism mild interstitial edema on imaging, however patient appears euvolemic on exam. monitor volume status continue supplemental oxygen as needed. Wean to goal 92% or above (3) Weakness: Code(s): R53.1 - Weakness Status: Acute Assessment and Plan: secondary to acute viral illness TSH and B12 within normal limits appreciate PT/OT eval (4) HTN (hypertension): Qualifiers: Hypertension type: essential hypertension Qualified Code(s): I10 - Essential (primary) hypertension Code(s): I10 - Essential (primary) hypertension Status: Chronic Assessment and Plan: blood pressures reviewed and have been stable. last BP 120/71 continue amlodipine, hydrochlorothiazide, losartan monitor BP trends (5) Diabetes mellitus: Qualifiers: Diabetes mellitus type: type 2 Diabetes mellitus nursing home insulin use: without nursing home use Diabetes mellitus complication status: with circulatory complication Diabetes mellitus complication detail: with other circulatory complications Qualified Code(s): E11.59 - Type 2 diabetes mellitus with other circulatory complications Code(s): E11.9 - Type 2 diabetes mellitus without complications Status: Chronic Assessment and Plan: A1c is 8.1. Monitor Accu-Cheks, sliding scale insulin, hypoglycemic protocol oral hypoglycemics on hold. Patient's reports he takes Lantus at home which is not on his medication list. She will be bringing in an updated medication list and insulin regimen will be resumed as appropriate after reviewing (6) CAD (coronary artery disease): Code(s): I25.10 - Atherosclerotic heart disease of [place] coronary artery without angina pectoris Status: Chronic Assessment and Plan: patient with significant heart disease history. No acute issues at this time troponin negative patient asymptomatic continue dual anti-platelet therapy and statin therapy (7) Renal mass: Code(s): N28.89 - Other specified disorders of kidney and ureter Status: Acute Assessment and Plan: CTA of the chest with incidental finding of renal mass 5.2 cm calcified and/or enhancing exophytic right renal mass discussed with patient and . Plan to proceed with MRI during admission Subjective Date/time seen: 06/01/22 09:33 Interval history: Date of service: 06/01/2022 Andres Hay is a 72 year old male with a history of agent orange exposure, CAD, hypertension, Hyperlipidemia, type 2 diabetes mellitus who is seen in follow-up for COVID-19. He feels weak and fatigued today. He endorses dry, hacking cough. Denies sputum production. He endorses conversational dyspnea but denies ESTRADA. He feels that at rest he is comfortable and denies shortness of breath. He did have an episode of diarrhea this morning. He was able to tolerate his diet. He denies nausea, vomiting, fever, or chills. no chest pain or palpitations. Spoke with his , Rosana, at the patient's request. Rosana states that he has been increasingly confused over the past several months. they had an akua
[2022-06-01] MEDS: ENOXAPARIN 40 MG/0.4 ML SYRINGE SUB-Q (09:37)
[2022-06-01] MEDS: LATANOPROST 0.005% OP SOLN 2.5 ML BTL 1 DROP EACH EYE (09:37)
[2022-06-01] MEDS: ASPIRIN 81 MG ENTERIC TABLET PO (09:38)
[2022-06-01] MEDS: SERTRALINE HCL 50 MG TABLET 100 MG PO (09:38)
[2022-06-01] MEDS: DEXAMETHASONE 2 MG TABLET 6 MG PO (09:38)
[2022-06-01] MEDS: amLODIPine BESYLATE 5 MG TABLET 10 MG PO (09:38)
[2022-06-01] MEDS: PANTOPRAZOLE 40 MG TABLET PO (09:39)
[2022-06-01] MEDS: ATORVASTATIN 40 MG TABLET PO (09:39)
[2022-06-01] MEDS: EZETIMIBE 10 MG TABLET PO (09:39)
[2022-06-01] MEDS: OMEGA 3 POLYUNSAT FATTY ACIDS 1 GM CAP 2 GM PO (09:39)
[2022-06-01] MEDS: CLOPIDOGREL BISULFATE 75 MG TABLET PO (09:39)
[2022-06-01] MEDS: LOSARTAN POTASSIUM 100 MG TABLET PO (09:40)
[2022-06-01] MEDS: hydroCHLOROthiazide 25 MG TABLET PO (09:40)
[2022-06-01 10:11] LABS: Hematocrit 42.7 % (42.0-52.0); Hemoglobin 13.7 g/dL (14.0-18.0); Mean Corpuscular HGB Conc 32.1 g/dl (32-36); Mean Corpuscular Hemoglobin 27.7 pg (26-34); Mean Corpuscular Volume 86.4 fl (80-100); Mean Platelet Volume 10.4 fl (7.4-10.4); Platelet Count Result 284 k/mm3 (150-375); Red Blood Count 4.94 M/mm3 (4.6-6.20); Red Cell Distribution Width 14.6 % (11.5-14.5); White Blood Count 5.5 K/mm3 (4.5-10.0)
[2022-06-01 10:40] LABS: Alanine Aminotransferase 64 U/L (6-50); Albumin Level 3.7 g/dL (3.5-5.1); Alkaline Phosphatase 94 U/L (38-126); Anion Gap 14 mmol/L (8-16); Aspartate Amino Transferase 45 U/L (17-59); Bilirubin,Total 0.3 mg/dL (0.2-1.3); Blood Urea Nitrogen 24 mg/dL (9-20); CRP < 0.5 mg/dL (<1.0); Calcium 9.3 mg/dL (8.4-10.2); Carbon Dioxide 24 mmol/L (22-30); Chloride 98 mmol/L (98-107); Estimated CRCL calculation 67 ml/min; Estimated Glomerular Filt Rate > 60; Glucose 170 mg/dL (65-110); Lactate Dehydrogenase 452 U/L (313-618); Potassium 4.3 mmol/L (3.4-5.0); Sodium 136 mmol/L (137-145)
[2022-06-01 11:36] LABS: Glucose Point of Care 186 mg/dl (65-105)
--- NOTE | 2022-06-01 11:42 | PCPTNOTE ---
attempted to see for PT evaluation - was away from MRI at 11:30
--- NOTE | 2022-06-01 12:56 | PCPTNOTE ---
Attempted to perform PT evaluation at 12:45. Patient refused for feeling too sick today. Will attempt again.
--- NOTE | 2022-06-01 12:56 | PCOTNOTE ---
Attempted to complete occupational therapy evaluation. Patient was out at MRI then checked back again and refused to participate due to stomach being upset. Will attempt again.
[2022-06-01 16:27] LABS: Glucose Point of Care 222 mg/dl (65-105)
[2022-06-01] MEDS: INSULIN ASPART (*BKC) 100 UNITS/ML SUB-Q (17:04)
[2022-06-01] MEDS: guaiFENesin 12 HR 600 MG TABCR PO (21:35)
[2022-06-01] MEDS: REMDESIVIR 100 MG/NS 250 ML 100 MG/250 ML BAG 250 MG IVPB (21:35)
[2022-06-02] VITALS (13 sets, daily range): BP systolic 115–125; BP diastolic 63–75; PULSE 54–74; RESP 14–18; TEMP 35.7–36.9; O2SAT 94–98
[2022-06-02 06:00] LABS: Hematocrit 43.6 % (42.0-52.0); Hemoglobin 13.9 g/dL (14.0-18.0); Mean Corpuscular HGB Conc 31.9 g/dl (32-36); Mean Corpuscular Hemoglobin 27.4 pg (26-34); Mean Corpuscular Volume 85.8 fl (80-100); Platelet Count Result 276 k/mm3 (150-375); Red Blood Count 5.08 M/mm3 (4.6-6.20); Red Cell Distribution Width 14.2 % (11.5-14.5); White Blood Count 5.4 K/mm3 (4.5-10.0)
[2022-06-02 06:13] LABS: Prothrombin Time 12.6 Seconds (11.1-14.7)
[2022-06-02 06:18] LABS: Alanine Aminotransferase 61 U/L (6-50); Albumin Level 3.5 g/dL (3.5-5.1); Alkaline Phosphatase 81 U/L (38-126); Anion Gap 6 mmol/L (8-16); Aspartate Amino Transferase 49 U/L (17-59); Bilirubin,Total 0.6 mg/dL (0.2-1.3); Blood Urea Nitrogen 19 mg/dL (9-20); Calcium 8.5 mg/dL (8.4-10.2); Carbon Dioxide 31 mmol/L (22-30); Chloride 99 mmol/L (98-107); Estimated CRCL calculation 75 ml/min; Estimated Glomerular Filt Rate > 60; Glucose 168 mg/dL (65-110); Lactate Dehydrogenase 412 U/L (313-618); Potassium 3.8 mmol/L (3.4-5.0); Sodium 136 mmol/L (137-145)
[2022-06-02 07:05] LABS: CRP < 0.5 mg/dL (<1.0)
[2022-06-02 08:05] LABS: Glucose Point of Care 151 mg/dl (65-105)
[2022-06-02] MEDS: OMEGA 3 POLYUNSAT FATTY ACIDS 1 GM CAP 2 GM PO (09:17)
[2022-06-02] MEDS: ATORVASTATIN 40 MG TABLET PO (09:18)
[2022-06-02] MEDS: ASPIRIN 81 MG ENTERIC TABLET PO (09:18)
[2022-06-02] MEDS: guaiFENesin 12 HR 600 MG TABCR PO ×2 (09:18→21:21)
[2022-06-02] MEDS: SERTRALINE HCL 50 MG TABLET 100 MG PO (09:18)
[2022-06-02] MEDS: DEXAMETHASONE 2 MG TABLET 6 MG PO (09:18)
[2022-06-02] MEDS: amLODIPine BESYLATE 5 MG TABLET 10 MG PO (09:18)
[2022-06-02] MEDS: hydroCHLOROthiazide 25 MG TABLET PO (09:19)
[2022-06-02] MEDS: METOPROLOL TARTRATE 25 MG TABLET PO ×2 (09:19→21:21)
[2022-06-02] MEDS: CLOPIDOGREL BISULFATE 75 MG TABLET PO (09:19)
[2022-06-02] MEDS: LATANOPROST 0.005% OP SOLN 2.5 ML BTL 1 DROP EACH EYE (09:22)
[2022-06-02] MEDS: LOSARTAN POTASSIUM 100 MG TABLET PO (09:22)
[2022-06-02] MEDS: ENOXAPARIN 40 MG/0.4 ML SYRINGE SUB-Q (09:22)
[2022-06-02] MEDS: EZETIMIBE 10 MG TABLET PO (09:22)
[2022-06-02] MEDS: PANTOPRAZOLE 40 MG TABLET PO (09:22)
[2022-06-02] MEDS: UMECLIDINIUM BROMIDE 62.5 MCG ELLIPTA 1 PUFF INHALATION (09:44)
[2022-06-02] MEDS: INSULIN ASPART (*BKC) 100 UNITS/ML SUB-Q ×2 (11:46→16:29)
[2022-06-02 11:51] LABS: Glucose Point of Care 247 mg/dl (65-105)
--- NOTE | 2022-06-02 13:03 | P.PNIM_ITS ---
Progress Note: A&P Assessment and Plan (1) COVID-19: Code(s): U07.1 - COVID-19 Status: Acute Assessment and Plan: symptom onset 05/27/2022 with home positive COVID test on 05/28. Confirmatory PCR at this facility positive on 05/31 * CXR with mild interstitial edema, no evidence of pneumonia * patient requiring 1 L supplemental oxygen * continue dexamethasone and Remdesivir given oxygen requirements * supportive care. Bronchodilators, expectorants, incentive spirometry * continue isolation precautions * patient completed COVID vaccine and 1 booster (2) Hypoxia: Code(s): R09.02 - Hypoxemia Status: Acute Assessment and Plan: patient hypoxic on presentation down to 88% * secondary to COVID-19 * CTA of the chest with no evidence of pulmonary embolism * mild interstitial edema on imaging, however patient appears euvolemic on exam. monitor volume status * continue supplemental oxygen as needed. Wean to goal 92% or above * he will need home O2 eval prior to discharge (3) Weakness: Code(s): R53.1 - Weakness Status: Acute Assessment and Plan: secondary to acute viral illness * TSH and B12 within normal limits * appreciate PT/OT eval (4) HTN (hypertension): Qualifiers: Hypertension type: essential hypertension Qualified Code(s): I10 - Essential (primary) hypertension Code(s): I10 - Essential (primary) hypertension Status: Chronic Assessment and Plan: blood pressures reviewed and have been stable. last BP 115/63 * continue amlodipine, hydrochlorothiazide, losartan * monitor BP trends (5) Diabetes mellitus: Qualifiers: Diabetes mellitus type: type 2 Diabetes mellitus long term care administrator insulin use: without long term care administrator use Diabetes mellitus complication status: with circulatory complication Diabetes mellitus complication detail: with other circulatory complications Qualified Code(s): E11.59 - Type 2 diabetes mellitus with other circulatory complications Code(s): E11.9 - Type 2 diabetes mellitus without complications Status: Chronic Assessment and Plan: A1c is 8.1. * Monitor Accu-Cheks, sliding scale insulin, hypoglycemic protocol * Oral hypoglycemics on hold. * Patient's reports he takes Lantus at home which is not on his medication list. RN obtaining updated list (6) CAD (coronary artery disease): Code(s): I25.10 - Atherosclerotic heart disease of [place] coronary artery without angina pectoris Status: Chronic Assessment and Plan: Patient with significant heart disease history. No acute issues at this time * troponin negative * patient asymptomatic * continue dual anti-platelet therapy and statin therapy (7) Meckel diverticulum: Code(s): Q43.0 - Meckel's diverticulum (displaced) (hypertrophic) Status: Acute Assessment and Plan: abdominal MRI showed nonspecific 11.4 by 4.9 x 4.3 cm complex cystic lesion which abuts the lower pole of the left kidney and extends caudally to the right lower quadrant word about the segment of small bowel. Findings suggestive of possible Meckel's diverticulum containing a small amount of blood products likely related to active extravasation * discussed findings with General surgery and Gastroenterology * patient is hemodynamically stable. Does not appear to have any active bleeding. * will obtain stool occult blood test * patient is asymptomatic and hemodynamically stable, therefore no indication for any further intervention
--- NOTE | 2022-06-02 13:03 | PM.IMPN ---
Progress Note: A&P Assessment and Plan (1) COVID-19: Code(s): U07.1 - COVID-19 Status: Acute Assessment and Plan: symptom onset 05/27/2022 with home positive COVID test on 05/28. Confirmatory PCR at this facility positive on 05/31 CXR with mild interstitial edema, no evidence of pneumonia patient requiring 1 L supplemental oxygen continue dexamethasone and Remdesivir given oxygen requirements supportive care. Bronchodilators, expectorants, incentive spirometry continue isolation precautions patient completed COVID vaccine and 1 booster (2) Hypoxia: Code(s): R09.02 - Hypoxemia Status: Acute Assessment and Plan: patient hypoxic on presentation down to 88% secondary to COVID-19 CTA of the chest with no evidence of pulmonary embolism mild interstitial edema on imaging, however patient appears euvolemic on exam. monitor volume status continue supplemental oxygen as needed. Wean to goal 92% or above he will need home O2 eval prior to discharge (3) Weakness: Code(s): R53.1 - Weakness Status: Acute Assessment and Plan: secondary to acute viral illness TSH and B12 within normal limits appreciate PT/OT eval (4) HTN (hypertension): Qualifiers: Hypertension type: essential hypertension Qualified Code(s): I10 - Essential (primary) hypertension Code(s): I10 - Essential (primary) hypertension Status: Chronic Assessment and Plan: blood pressures reviewed and have been stable. last BP 115/63 continue amlodipine, hydrochlorothiazide, losartan monitor BP trends (5) Diabetes mellitus: Qualifiers: Diabetes mellitus type: type 2 Diabetes mellitus detention insulin use: without link trainer maintenance worker use Diabetes mellitus complication status: with circulatory complication Diabetes mellitus complication detail: with other circulatory complications Qualified Code(s): E11.59 - Type 2 diabetes mellitus with other circulatory complications Code(s): E11.9 - Type 2 diabetes mellitus without complications Status: Chronic Assessment and Plan: A1c is 8.1. Monitor Accu-Cheks, sliding scale insulin, hypoglycemic protocol Oral hypoglycemics on hold. Patient's reports he takes Lantus at home which is not on his medication list. RN obtaining updated list (6) CAD (coronary artery disease): Code(s): I25.10 - Atherosclerotic heart disease of [place] coronary artery without angina pectoris Status: Chronic Assessment and Plan: Patient with significant heart disease history. No acute issues at this time troponin negative patient asymptomatic continue dual anti-platelet therapy and statin therapy (7) Meckel diverticulum: Code(s): Q43.0 - Meckel's diverticulum (displaced) (hypertrophic) Status: Acute Assessment and Plan: abdominal MRI showed nonspecific 11.4 by 4.9 x 4.3 cm complex cystic lesion which abuts the lower pole of the left kidney and extends caudally to the right lower quadrant word about the segment of small bowel. Findings suggestive of possible Meckel's diverticulum containing a small amount of blood products likely related to active extravasation discussed findings with General surgery and Gastroenterology patient is hemodynamically stable. Does not appear to have any active bleeding. will obtain stool occult blood test patient is asymptomatic and hemodynamically stable, therefore no indication for any further intervention at this time. (8) Renal mass: Code(s): N28.89 - Other specified disorders of kidney and ureter Status: Acute Assessment and Plan: Ruled out. CTA of the chest with incidental finding of renal mass 5.2 cm calcified and/or enhancing exophytic right renal mass MRI shows mass abutting kidney but not arising from kidney. See above. Subjective Date/time seen: 06/02/22 13:03 Inte
[2022-06-02 16:30] LABS: Glucose Point of Care 324 mg/dl (65-105)
[2022-06-02 20:24] LABS: Glucose Point of Care 334 mg/dl (65-105)
[2022-06-02] MEDS: REMDESIVIR 100 MG/NS 250 ML 100 MG/250 ML BAG 250 MG IVPB (21:22)
[2022-06-02] MEDS: INSULIN GLARGINE (*BKC) 100 UNITS/ML 30 UNITS SUB-Q (21:22)
[2022-06-03] VITALS (10 sets, daily range): BP systolic 130; BP diastolic 50; PULSE 51–80; RESP 18; TEMP 36.2; O2SAT 92–95
[2022-06-03 05:19] LABS: Hematocrit 42.1 % (42.0-52.0); Hemoglobin 13.8 g/dL (14.0-18.0); Mean Corpuscular HGB Conc 32.8 g/dl (32-36); Mean Corpuscular Hemoglobin 27.7 pg (26-34); Mean Corpuscular Volume 84.5 fl (80-100); Platelet Count Result 278 k/mm3 (150-375); Red Blood Count 4.98 M/mm3 (4.6-6.20); Red Cell Distribution Width 13.8 % (11.5-14.5); White Blood Count 5.7 K/mm3 (4.5-10.0)
[2022-06-03 05:30] LABS: INR 1.1; Prothrombin Time 13.4 Seconds (11.1-14.7)
[2022-06-03 05:31] LABS: Alanine Aminotransferase 52 U/L (6-50); Albumin Level 3.5 g/dL (3.5-5.1); Alkaline Phosphatase 83 U/L (38-126); Anion Gap 4 mmol/L (8-16); Aspartate Amino Transferase 32 U/L (17-59); Bilirubin,Total 0.5 mg/dL (0.2-1.3); Blood Urea Nitrogen 18 mg/dL (9-20); Calcium 8.3 mg/dL (8.4-10.2); Carbon Dioxide 33 mmol/L (22-30); Chloride 98 mmol/L (98-107); Estimated CRCL calculation 85 ml/min; Estimated Glomerular Filt Rate > 60; Glucose 219 mg/dL (65-110); Potassium 3.4 mmol/L (3.4-5.0); Sodium 135 mmol/L (137-145)
[2022-06-03 07:57] LABS: Glucose Point of Care 175 mg/dl (65-105)
[2022-06-03] MEDS: EZETIMIBE 10 MG TABLET PO (09:19)
[2022-06-03] MEDS: ATORVASTATIN 40 MG TABLET PO (09:19)
[2022-06-03] MEDS: LOSARTAN POTASSIUM 100 MG TABLET PO (09:19)
[2022-06-03] MEDS: PANTOPRAZOLE 40 MG TABLET PO (09:19)
[2022-06-03] MEDS: DEXAMETHASONE 2 MG TABLET 6 MG PO (09:19)
[2022-06-03] MEDS: UMECLIDINIUM BROMIDE 62.5 MCG ELLIPTA 1 PUFF INHALATION (09:20)
[2022-06-03] MEDS: amLODIPine BESYLATE 5 MG TABLET 10 MG PO (09:20)
[2022-06-03] MEDS: SERTRALINE HCL 50 MG TABLET 100 MG PO (09:20)
[2022-06-03] MEDS: guaiFENesin 12 HR 600 MG TABCR PO (09:20)
[2022-06-03] MEDS: ASPIRIN 81 MG ENTERIC TABLET PO (09:21)
[2022-06-03] MEDS: CLOPIDOGREL BISULFATE 75 MG TABLET PO (09:21)
[2022-06-03] MEDS: METOPROLOL TARTRATE 25 MG TABLET PO (09:21)
[2022-06-03] MEDS: hydroCHLOROthiazide 25 MG TABLET PO (09:22)
[2022-06-03] MEDS: ENOXAPARIN 40 MG/0.4 ML SYRINGE SUB-Q (09:22)
[2022-06-03] MEDS: OMEGA 3 POLYUNSAT FATTY ACIDS 1 GM CAP 2 GM PO (09:23)
[2022-06-03] MEDS: LATANOPROST 0.005% OP SOLN 2.5 ML BTL 1 DROP EACH EYE (09:33)
[2022-06-03 10:41] LABS: IFOB Positive Control Positive; Immunochemical Fecal Occult Bl Negative (N)
--- NOTE | 2022-06-03 11:19 | HOMEO2EVAL ---
Evaluation was performed at [facility] Home Oxygen Evaluation RC: Home Oxygen (O2) Evaluation Start: 06/03/22 08:14 Freq: ONCE Status: Active Protocol: RPE Activity Type Activity Date Activity User E-sign Co-sign Detail Recorded Client Recorded Date Recorded By Document 06/03/22 11:00 [email or web address] [email or web address] 06/03/22 11:18 LOU Document 06/03/22 11:05 LOU [email or web address] 06/03/22 11:18 LOU Document 06/03/22 11:15 LOU [email or web address] 06/03/22 11:18 LOU 06/03/22 06/03/22 06/03/22 11:00 11:05 11:15 Home O2 Evaluation Test Phase Resting Exercise Resting Oxygen Delivery Room Air Room Air Room Air Pulse Oximetry (90-100 %) 94 92 95 Pulse Rate (60-100 beats/min) 66 80 72 Home Oxygen Evaluation Comments NO HOME O2 NEEDED Treatment Charges O2 Evaluation - Inpatient
--- NOTE | 2022-06-03 11:19 | PCRCNOTE ---
HOME O2 EVAL COMPLETED, NO HOME O2 NEEDED AT THIS TIME.. RN NOTIFIED
[2022-06-03 11:35] LABS: Glucose Point of Care 250 mg/dl (65-105)
[2022-06-03] MEDS: INSULIN ASPART (*BKC) 100 UNITS/ML SUB-Q (11:45)
--- NOTE | 2022-06-03 11:57 | P.DS_ITS ---
DS: Admitting Diagnosis Discharge Date 06/03/2023 Admitting Diagnosis COVID-19 DS: Discharge Diagnosis Discharge Diagnosis (1) COVID-19: Code(s): U07.1 - COVID-19 Status: Acute Assessment and Plan: symptom onset 05/27/2022 with home positive COVID test on 05/28. Confirmatory PCR at this facility positive on 05/31 * CXR with mild interstitial edema, no evidence of pneumonia * Patient required up to 2 L supplemental O2, able to be weaned to room air * Received dexamethasone and Remdesivir given oxygen requirements * supportive care provided including bronchodilators, expectorants, incentive spirometry * patient completed COVID vaccine and 1 booster (2) Hypoxia: Code(s): R09.02 - Hypoxemia Status: Acute Assessment and Plan: patient hypoxic on presentation down to 88% * secondary to COVID-19 * CTA of the chest with no evidence of pulmonary embolism * mild interstitial edema on imaging, however patient was euvolemic on exam * Able to be weaned to room air * Home O2 eval performed on 06/03/2022 and patient had no supplemental oxygen requirement (3) Weakness: Code(s): R53.1 - Weakness Status: Acute Assessment and Plan: secondary to acute viral illness * TSH and B12 within normal limits * Participated in PT/OT during admission * Home health was arranged to continue with therapy (4) HTN (hypertension): Qualifiers: Hypertension type: essential hypertension Qualified Code(s): I10 - Essential (primary) hypertension Code(s): I10 - Essential (primary) hypertension Status: Chronic Assessment and Plan: blood pressures reviewed and remained stable * continue amlodipine, hydrochlorothiazide, losartan (5) Diabetes mellitus: Qualifiers: Diabetes mellitus type: type 2 Diabetes mellitus terminal gauger insulin use: without correction use Diabetes mellitus complication status: with circulatory complication Diabetes mellitus complication detail: with other circulatory complications Qualified Code(s): E11.59 - Type 2 diabetes mellitus with other circulatory complications Code(s): E11.9 - Type 2 diabetes mellitus without complications Status: Chronic Assessment and Plan: A1c is 8.1. * Managed during admission with Accu-Cheks, sliding scale insulin, hypoglycemic protocol * Blood sugar slightly elevated after addition of steroids. Anticipate this to resolve as dexamethasone was discontinued * Continue home Lantus and metformin (6) CAD (coronary artery disease): Code(s): I25.10 - Atherosclerotic heart disease of [place] coronary artery without angina pectoris Status: Chronic Assessment and Plan: Patient with significant heart disease history. No acute issues * troponin negative * patient remained asymptomatic * continue dual anti-platelet therapy and statin therapy (7) Meckel diverticulum: Code(s): Q43.0 - Meckel's diverticulum (displaced) (hypertrophic) Status: Acute Assessment and Plan: Abdominal MRI showed nonspecific 11.4 by 4.9 x 4.3 cm complex cystic lesion which abuts the lower pole of the left kidney and extends caudally to the right lower quadrant word about the segment of small bowel. Findings suggestive of possible Meckel's diverticulum containing a small amount of blood products likely related to active extravasation * discussed findings with General surgery and Gastroenterology * patient is hemodynamically stable, does not appear to have any act
--- NOTE | 2022-06-03 11:57 | PM.DS ---
DS: Admitting Diagnosis Discharge Date 06/03/2023 Admitting Diagnosis COVID-19 DS: Discharge Diagnosis Discharge Diagnosis (1) COVID-19: Code(s): U07.1 - COVID-19 Status: Acute Assessment and Plan: symptom onset 05/27/2022 with home positive COVID test on 05/28. Confirmatory PCR at this facility positive on 05/31 CXR with mild interstitial edema, no evidence of pneumonia Patient required up to 2 L supplemental O2, able to be weaned to room air Received dexamethasone and Remdesivir given oxygen requirements supportive care provided including bronchodilators, expectorants, incentive spirometry patient completed COVID vaccine and 1 booster (2) Hypoxia: Code(s): R09.02 - Hypoxemia Status: Acute Assessment and Plan: patient hypoxic on presentation down to 88% secondary to COVID-19 CTA of the chest with no evidence of pulmonary embolism mild interstitial edema on imaging, however patient was euvolemic on exam Able to be weaned to room air Home O2 eval performed on 06/03/2022 and patient had no supplemental oxygen requirement (3) Weakness: Code(s): R53.1 - Weakness Status: Acute Assessment and Plan: secondary to acute viral illness TSH and B12 within normal limits Participated in PT/OT during admission Home health was arranged to continue with therapy (4) HTN (hypertension): Qualifiers: Hypertension type: essential hypertension Qualified Code(s): I10 - Essential (primary) hypertension Code(s): I10 - Essential (primary) hypertension Status: Chronic Assessment and Plan: blood pressures reviewed and remained stable continue amlodipine, hydrochlorothiazide, losartan (5) Diabetes mellitus: Qualifiers: Diabetes mellitus type: type 2 Diabetes mellitus senior care insulin use: without senior care use Diabetes mellitus complication status: with circulatory complication Diabetes mellitus complication detail: with other circulatory complications Qualified Code(s): E11.59 - Type 2 diabetes mellitus with other circulatory complications Code(s): E11.9 - Type 2 diabetes mellitus without complications Status: Chronic Assessment and Plan: A1c is 8.1. Managed during admission with Accu-Cheks, sliding scale insulin, hypoglycemic protocol Blood sugar slightly elevated after addition of steroids. Anticipate this to resolve as dexamethasone was discontinued Continue home Lantus and metformin (6) CAD (coronary artery disease): Code(s): I25.10 - Atherosclerotic heart disease of [place] coronary artery without angina pectoris Status: Chronic Assessment and Plan: Patient with significant heart disease history. No acute issues troponin negative patient remained asymptomatic continue dual anti-platelet therapy and statin therapy (7) Meckel diverticulum: Code(s): Q43.0 - Meckel's diverticulum (displaced) (hypertrophic) Status: Acute Assessment and Plan: Abdominal MRI showed nonspecific 11.4 by 4.9 x 4.3 cm complex cystic lesion which abuts the lower pole of the left kidney and extends caudally to the right lower quadrant word about the segment of small bowel. Findings suggestive of possible Meckel's diverticulum containing a small amount of blood products likely related to active extravasation discussed findings with General surgery and Gastroenterology patient is hemodynamically stable, does not appear to have any active bleeding. stool occult blood test negative patient is asymptomatic and hemodynamically stable, therefore no indication for any further intervention at this time. follow-up with PCP regarding findings. Discussed case with Dr. Ibarra on 06/03. (8) Renal mass: Code(s): N28.89 - Other specified disorders of kidney and ureter Status: Acute Assessment and Plan: Ruled out. CTA of the chest
== END 2022-06-03 14:10 | disposition home health service (06) | DRG 179 ==
LOC: ANHED 16:15 → ANH2MED 17:17
PROVIDERS: Nurse Practitioner Adult Health; Admitting Provider Family Medicine; Emergency Provider General Practice; PCP Internal Medicine; Visit Provider Physician Assistant
DX: U07.1 COVID-19 (principal); R09.02 Hypoxemia; R53.1 Weakness; I25.10 Atherosclerotic heart disease of native coronary artery without angina pectoris; E11.59 Type 2 diabetes mellitus with other circulatory complications; I10 Essential (primary) hypertension; Q43.0 Meckel's diverticulum (displaced) (hypertrophic); Z79.82 Long term (current) use of aspirin; Z79.899 Other long term (current) drug therapy; Z87.891 Personal history of nicotine dependence
CPT/HCPCS: 36415; 36600; 51701; 71045; 71275; 74183; 80053; 81001; 82274; 82375; 82565; 82607; 82728; 82805; 82948; 83036; 83050; 83615; 83690; 83880; 84443; 84460; 84484; 85025; 85027; 85380; 85610; 85730; 86140; 93005; 94618; 94640; 94667; 96361; 96374; 97110; 97161; 97165; 97530; 99284; 99285; A9270; A9577; C9803; J0248; J1100; J1650; J1815; J7030; J8540; Q9967; U0003; U0005

== ENCOUNTER 2022-08-25 13:15 | Outpatient (RCR) | payer MEDICARE, BC, SELFPAY ==
--- NOTE | 2022-07-25 15:59 | PTOPEVAL1 ---
Assessment and note entered by Arlene Bishop, PT Evaluation Information Assessment Status Evaluation Diagnosis balance and walking difficulty Subjective Information Feels like the ground is tipping, starts falling to one side or another, or backwards Reported Pain Level Pain Score 0: Self Report Assessment PT Clinical Summary Pt presents for evaluation w/ dx of weakness and unspec abnormalities of gait and mobility. Pt has a Tinetti standardized balance testing score of 13 /28 showing pt at high risk for falls. Evaluation also shows cervical dysfunction with pain, and dizziness related to position as well as with eye movement testing. These suggest possible cervicogenic vertigo as well as possibility of BPPV component effecting pt's balance and ambulation. Today pt was educated on effect of c- spine on dizziness/balance, as well as home instruction for posture and inflammation. Pt will greatly benefit from physical therapy to address cervical deficits, dizziness, balance, and ambulation deficits in order to improve functional mobility and independence with decreased risk of falls and injury. Plan of Care Interventions Electrical Stimulation,Hot Pack/Cold Pack,Manual Therapy,Mechanical Traction,Neuro Re-education, Therapeutic Activities,Therapeutic Exercise, Ultrasound PT Services Indicated Yes Treatment Frequency and 2x weekly x 4 weeks Duration These treatments will address the objective and functional deficits as defined above. The patient will be advanced safely and appropriately in order for the patient to progress towards his/her prior level of function. Additional exercises will be introduced and as well as a comprehensive home exercise program upon discharge, if needed, ?to ensure carryover of functional gains achieved in the clinic. This treatment plan has been reviewed and agreement upon by the patient.
--- NOTE | 2022-08-26 17:05 | BUPTOPEVAL1 ---
Assessment and note entered by Arlene Bishop, PT Progress Information Assessment Status Progress Diagnosis balance and walking difficulty Subjective Information Cont increased tinnitus today, lots of dizziness today. Reports fell again, this time was reaching out of bed to night stand and fell out of bed. The other day was standing still and felt like he was going to fall. Cont to fell not really here . States is also having trouble understanding things at time . No trouble reading. Reported Pain Level Pain Score 0-4/10:Cervical spine Assessment PT Clinical Summary Pt has attended therapy consistently for gait abnormality and dizziness. Presented as BPPV and Cervicogenic vertigo. Pt resting muscle tone, ROM, and postures are all improved. Initially pt had minimal tolerance to manual to upper traps as would cause dizziness however this has resolved. Cont to be unable to perform eye portion of vestibular therapy as saccades, smooth pursuit, and VOR activities make pt nauseas regardless of modification. Overall pt reports dizziness and vertigo symptoms have not improved, also appears to have more reports of falls regardless of modifications made to activities to decrease likelihood of falls. Pt reports having difficulty recently with verbal comprehension, and difficulty with word finding as well as consistent reports of feeling not quite there . Pt also shows absence of most upper extremity reflexes bilaterally and has hypersensitivity to [place] pinweel along palm of right hand. Discussed with pt benefit of continuing therapy for his cervical pain, posture, and balance as well as pursuing referral to ENT and/or neurologist for his dizziness symptoms pending referring MD's assessment. Plan of Care PT Services Indicated Yes Treatment Frequency and 2x weekly x 4 weeks focus on cervical spine, Duration posture, and standing balance without vestibular component These treatments will address the objective and functional deficits as defined above. The patient will be advanced safely and appropriately in order for the patient to progress towards his/her prior level of function. Additional exercises will be introduced and as well as a comprehensive home exercise program upon discharge, if needed, ?to ensure carryover of functional gains achieved in the clinic. This treatment plan has been reviewed and agreement upon by the patient.
== END 2022-10-23 23:59 | disposition home or self-care (01) ==
LOC: ANHHIPT 13:15
PROVIDERS: PCP Internal Medicine; Visit Provider Internal Medicine
DX: R53.1 Weakness (principal); R26.9 Unspecified abnormalities of gait and mobility
CPT/HCPCS: 97110; 97112; 97140; 97162; 97530

== ENCOUNTER 2022-11-24 14:59 | Outpatient (CLI) | payer MEDICARE, BC, SELFPAY ==
[2022-11-24 20:51] LABS: Hemoglobin A1C 9.4 % (<5.7)
[2022-11-24 20:55] LABS: Prostate Specific Antigen 0.7 ng/mL (< OR = 4.0)
== END 2022-11-24 15:00 | disposition home or self-care (01) ==
LOC: ANHGOSHLAB 15:01
PROVIDERS: PCP Internal Medicine; Visit Provider Internal Medicine
DX: E11.59 Type 2 diabetes mellitus with other circulatory complications (principal); Z12.5 Encounter for screening for malignant neoplasm of prostate
CPT/HCPCS: 36415; 83036; 84153; G0103

== ENCOUNTER 2023-02-23 14:48 | Outpatient (CLI) | payer MEDICARE, BC, SELFPAY ==
[2023-02-23 19:13] LABS: Basophils Absolute Auto 0.1 K/mm3 (0.0-0.1); Basophils Percent Auto 1.2 % (0.2-1.2); Eosinophils Absolute Auto 0.4 K/mm3 (0-0.3); Eosinophils Percent Auto 4.3 % (0-4.4); Hematocrit 42.8 % (42.0-52.0); Hemoglobin 13.7 g/dL (14.0-18.0); Immature Granulocyte Absolute 0.02 K/mm3 (0.00-0.031); Immature Granulocyte Percent A 0.2 % (0-0.5); Lymphocytes Absolute Auto 1.43 K/mm3 (0.9-3.2); Lymphocytes Percent Auto 14.2 % (18.3-44.2); Mean Corpuscular Hemoglobin 26.3 pg (26-34); Mean Corpuscular Volume 82.3 fl (80-100); Mean Platelet Volume 10.3 fl (7.4-10.4); Monocytes Absolute Auto 0.8 K/mm3 (0.1-0.6); Monocytes Percent Auto 8.3 % (2.6-8.5); Neutrophils Absolute Auto 7.2 K/mm3 (1.3-6.7); Neutrophils Percent Auto 71.8 % (45.5-73.1); Platelet Count Result 381 k/mm3 (150-375); White Blood Count 10.1 K/mm3 (4.5-10.0)
[2023-02-23 21:03] LABS: Alanine Aminotransferase 133 U/L (6-50); Albumin Level 4.1 g/dL (3.5-5.1); Alkaline Phosphatase 95 U/L (38-126); Anion Gap 4 mmol/L (8-16); Aspartate Amino Transferase 111 U/L (17-59); Bilirubin,Total 0.6 mg/dL (0.2-1.3); Blood Urea Nitrogen 16 mg/dL (9-20); Carbon Dioxide 32 mmol/L (22-30); Chloride 101 mmol/L (98-107); Cholesterol 77 mg/dL (0-200); Estimated Glomerular Filt Rate > 60; Glucose 129 mg/dL (65-110); HDL Direct 29 mg/dL; Potassium 4.1 mmol/L (3.4-5.0); Sodium 137 mmol/L (137-145); Triglycerides 156 mg/dL (<150)
[2023-02-23 21:26] LABS: LDL Cholesterol Direct < 30 mg/dL
[2023-02-23 22:04] LABS: Hemoglobin A1C 8.7 % (<5.7)
== END 2023-02-23 14:49 | disposition home or self-care (01) ==
LOC: ANHGOSHLAB 14:49
PROVIDERS: PCP Internal Medicine; Visit Provider Internal Medicine
DX: I10 Essential (primary) hypertension (principal); E11.59 Type 2 diabetes mellitus with other circulatory complications
CPT/HCPCS: 36415; 80053; 80061; 83036; 85025

== ENCOUNTER 2023-06-01 15:30 | Outpatient (CLI) | payer MEDICARE, BC, SELFPAY ==
[2023-06-01 20:09] LABS: Basophils Absolute Auto 0.1 K/mm3 (0.0-0.1); Eosinophils Absolute Auto 0.5 K/mm3 (0-0.3); Eosinophils Percent Auto 4.4 % (0-4.4); Hematocrit 44.1 % (42.0-52.0); Hemoglobin 14.5 g/dL (14.0-18.0); Immature Granulocyte Absolute 0.02 K/mm3 (0.00-0.031); Immature Granulocyte Percent A 0.2 % (0-0.5); Lymphocytes Absolute Auto 1.25 K/mm3 (0.9-3.2); Lymphocytes Percent Auto 12.2 % (18.3-44.2); Mean Corpuscular HGB Conc 32.9 g/dl (32-36); Mean Corpuscular Hemoglobin 26.7 pg (26-34); Mean Corpuscular Volume 81.1 fl (80-100); Mean Platelet Volume 10.6 fl (7.4-10.4); Monocytes Absolute Auto 0.9 K/mm3 (0.1-0.6); Monocytes Percent Auto 9.1 % (2.6-8.5); Neutrophils Absolute Auto 7.5 K/mm3 (1.3-6.7); Neutrophils Percent Auto 73.1 % (45.5-73.1); Platelet Count Result 399 k/mm3 (150-375); Red Blood Count 5.44 M/mm3 (4.6-6.20); Red Cell Distribution Width 14.2 % (11.5-14.5); White Blood Count 10.3 K/mm3 (4.5-10.0)
[2023-06-01 21:10] LABS: Alanine Aminotransferase 191 U/L (6-50); Alkaline Phosphatase 91 U/L (38-126); Anion Gap 9 mmol/L (8-16); Aspartate Amino Transferase 142 U/L (17-59); Bilirubin,Total 0.9 mg/dL (0.2-1.3); Blood Urea Nitrogen 17 mg/dL (9-20); Calcium 9.1 mg/dL (8.4-10.2); Carbon Dioxide 28 mmol/L (22-30); Chloride 97 mmol/L (98-107); Estimated Glomerular Filt Rate > 60; Glucose 233 mg/dL (65-110); Potassium 3.5 mmol/L (3.4-5.0); Sodium 134 mmol/L (137-145)
[2023-06-01 21:35] LABS: Thyroid Stimulating Hormone 0.877 uIU/mL (0.465-4.680)
[2023-06-01 22:08] LABS: Hepatitis C Virus Antibody Negative (Negative)
[2023-06-01 22:12] LABS: Hemoglobin A1C 10.1 % (<5.7)
== END 2023-06-01 15:31 | disposition home or self-care (01) ==
LOC: ANHGOSHLAB 15:34
PROVIDERS: PCP Internal Medicine; Visit Provider Internal Medicine
DX: E11.59 Type 2 diabetes mellitus with other circulatory complications (principal); D64.9 Anemia, unspecified; R74.8 Abnormal levels of other serum enzymes
CPT/HCPCS: 36415; 80053; 83036; 84443; 85025; 86803

== ENCOUNTER → 2023-07-06 10:08 | Outpatient (CLI) | payer MEDICARE, BC, SELFPAY ==
--- NOTE | ~2023-07-06 | US_ITS ---
Limited Abdominal Sonogram: Real-time sonographic imaging of the right upper quadrant was performed. Clinical History: Abnormal serum enzyme levels Findings: The liver appears normal with no evidence of mass lesion or bile duct dilatation. Main por consuelo vein demonstrates normal direction of flow. The gallbladder is absent, compatible prior cholecyst ectomy. The common bile duct measures 8 mm. The visualized pancreas, aorta, and IVC are unremarkable . Impression: Mildly dilated common bile duct, possibly related to prior cholecystectomy. No other significant findings. Reviewed, dictated and finalized at location M. Impression: Mildly dilated common bile duct, possibly related to prior cholecystectomy. No other significant findings.
== END ==
PROVIDERS: PCP Internal Medicine; Visit Provider Internal Medicine
DX: R74.8 Abnormal levels of other serum enzymes (principal)
CPT/HCPCS: 76705

== ENCOUNTER 2023-08-05 15:04 | Outpatient (CLI) | payer MEDICARE, BC, SELFPAY ==
[2023-08-05 16:05] LABS: Hematocrit 45.1 % (42.0-52.0); Hemoglobin 14.4 g/dL (14.0-18.0); Mean Corpuscular HGB Conc 31.9 g/dl (32-36); Mean Corpuscular Hemoglobin 26.2 pg (26-34); Platelet Count Result 344 k/mm3 (150-375); Red Cell Distribution Width 15.3 % (11.5-14.5); White Blood Count 10.1 K/mm3 (4.5-10.0)
[2023-08-05 16:19] LABS: Alanine Aminotransferase 87 U/L (6-50); Albumin Level 4.3 g/dL (3.5-5.1); Alkaline Phosphatase 71 U/L (38-126); Aspartate Amino Transferase 57 U/L (17-59); Bilirubin,Total 0.7 mg/dL (0.2-1.3)
[2023-08-05 17:30] LABS: Iron 56 ug/dL (49-181)
[2023-08-05 17:39] LABS: Percent Iron Saturation 9 % (20-50)
[2023-08-05 18:06] LABS: Ferritin 6.71 ng/mL (11.1-264)
[2023-08-07 13:03] LABS: Actin Antibody (IgG) <20 U (<20)
[2023-08-07 23:19] LABS: LKM 1 Antibody <=20.0 U (<=20.0)
[2023-08-08 03:40] LABS: Anti Nuclear Antibody Pattern Nuclear, Speckled
[2023-08-09 22:54] LABS: Mitochondrial (M2) Ab (IgG) <=20.0 U (<=20.0)
[2023-08-11 06:43] LABS: Alpha-1-Antitrypsin, QN 182 mg/dL (83-199); Ceruloplasmin 28 mg/dL (18-36)
[2023-08-11 17:37] LABS: Alpha Fetoprotein Tumor Marker 2.8 ng/mL (<6.1)
[2023-08-12 14:40] LABS: GGT 24 U/L (3-70)
[2023-08-12 16:01] LABS: ALT 68 U/L (9-46); Alpha-2-Macroglobulin 359 mg/dL (106-279); Apolipoprotein A1 131 mg/dL (94-176); Fibrosis Score 0.48; Fibrosis Stage F1-F2; GGT 23 U/L (3-70); Haptoglobin 217 mg/dL (43-212); Necroinflammat Act Grade A1-A2; Total Bilirubin 0.3 mg/dL (0.2-1.2)
== END 2023-08-05 15:05 | disposition home or self-care (01) ==
PROVIDERS: PCP Internal Medicine; Visit Provider Nurse Practitioner Family
DX: R74.8 Abnormal levels of other serum enzymes (principal); R79.89 Other specified abnormal findings of blood chemistry; E78.2 Mixed hyperlipidemia
CPT/HCPCS: 36415; 80076; 81596; 82103; 82105; 82390; 82728; 82977; 83520; 83540; 83550; 85027; 86038; 86039; 86364; 86376

== ENCOUNTER 2023-09-01 14:00 | Outpatient (CLI) | payer MEDICARE, BC, SELFPAY ==
[2023-09-01 19:59] LABS: Hepatitis B Surface Antigen Negative (Negative)
[2023-09-01 20:16] LABS: Hepatitis B Surface Anti Res Negative
[2023-09-05 19:45] LABS: Hepatitis B Core Ab Total Nonreactive (Nonreactive)
== END 2023-09-01 14:01 | disposition home or self-care (01) ==
PROVIDERS: PCP Internal Medicine; Visit Provider Nurse Practitioner Family
DX: E11.59 Type 2 diabetes mellitus with other circulatory complications (principal); R79.89 Other specified abnormal findings of blood chemistry; R74.8 Abnormal levels of other serum enzymes
CPT/HCPCS: 36415; 83036; 86704; 86706; 87340

== ENCOUNTER 2023-11-02 20:56 | Emergency (ER) | payer MEDICARE, BC, SELFPAY ==
--- NOTE | ~2023-11-02 | XR_ITS ---
XR chest 2V 11/02/2023 21:20 Indication: Shortness of breath. Epigastric pain. Procedure: 2 view chest Comparison: Comparison to multiple prior studies sequentially, with oldest reviewed study dated 07/25. Findings: Status post median sternotomy for CABG. Heart size normal. Large hiatal hernia. No focal ai r space disease, pulmonary edema, pleural effusion or suspected pneumothorax. There is a right sided ventriculoperitoneal shunt. There are cholecystectomy clips. Impression: 1: No acute cardiopulmonary disease. Reviewed, dictated and finalized at location A. O STATION AUDIO ENGINEER Impression: 1: No acute cardiopulmonary disease.
--- NOTE | 2023-11-02 20:49 | ECG_ITS ---
Measurements Intervals [place] Rate: 75 P: 46 HI: 201 QRS: 7 QRSD: 119 T: 28 QT: 411 QTc: 460 Interpretive Statements SINUS RHYTHM INCOMPLETE RIGHT BUNDLE BRANCH BLOCK [90+ ms QRS DURATION, TERMINAL R IN V1/V2, 40+ ms S IN I/aVL/V4/V5/V6] COMPARED TO ECG 08/05/2021 15:40:23 NO SIGNIFICANT CHANGES Electronically Signed On 11-03-2023 15:55:15 ASSOCIATE PRODUCT MANAGER by Hemal Mcdermott M.D.
[2023-11-02 20:52] VITALS: BP 137/75; PULSE 75; RESP 24; TEMP 36.4; O2SAT 95
[2023-11-02 21:00] VITALS: PULSE 72; O2SAT 93
[2023-11-02 21:01] VITALS: O2SAT 93
[2023-11-02 21:13] LABS: Basophils Absolute Auto 0.1 K/mm3 (0.0-0.1); Basophils Percent Auto 1.2 % (0.2-1.2); Eosinophils Absolute Auto 0.3 K/mm3 (0-0.3); Eosinophils Percent Auto 3.9 % (0-4.4); Hematocrit 40.1 % (42.0-52.0); Hemoglobin 12.4 g/dL (14.0-18.0); Immature Granulocyte Absolute 0.01 K/mm3 (0.00-0.031); Immature Granulocyte Percent A 0.1 % (0-0.5); Lymphocytes Absolute Auto 1.25 K/mm3 (0.9-3.2); Lymphocytes Percent Auto 17.3 % (18.3-44.2); Mean Corpuscular HGB Conc 30.9 g/dl (32-36); Mean Corpuscular Hemoglobin 25.7 pg (26-34); Mean Corpuscular Volume 83.2 fl (80-100); Monocytes Absolute Auto 0.6 K/mm3 (0.1-0.6); Monocytes Percent Auto 8.3 % (2.6-8.5); Neutrophils Percent Auto 69.2 % (45.5-73.1); Platelet Count Result 340 k/mm3 (150-375); Red Blood Count 4.82 M/mm3 (4.6-6.20); Red Cell Distribution Width 15.6 % (11.5-14.5); White Blood Count 7.2 K/mm3 (4.5-10.0)
[2023-11-02 21:24] LABS: Alanine Aminotransferase 224 U/L (6-50); Albumin Level 3.5 g/dL (3.5-5.1); Alkaline Phosphatase 68 U/L (38-126); Anion Gap 10 mmol/L (8-16); Aspartate Amino Transferase 184 U/L (17-59); Bilirubin,Total 0.4 mg/dL (0.2-1.3); Blood Urea Nitrogen 15 mg/dL (9-20); Carbon Dioxide 26 mmol/L (22-30); Chloride 101 mmol/L (98-107); Estimated CRCL calculation 96 ml/min; Estimated Glomerular Filt Rate > 60; Glucose 236 mg/dL (65-110); Potassium 4.2 mmol/L (3.4-5.0); Sodium 137 mmol/L (137-145)
[2023-11-02 21:43] LABS: Influenza A QL RT-PCR Negative (Negative); Influenza B QL RT-PCR Negative (Negative); RSV RNA, RT-PCR Negative (Negative); SARS-CoV-2 RNA PCR Negative (Negative)
[2023-11-02 21:54] LABS: NT Pro B Type Natriuretic Pept 82 pg/mL (19.9-100); Troponin I < 0.012 ng/mL (0.000-0.034)
[2023-11-02 22:33] VITALS: BP 135/76; PULSE 75; RESP 22; O2SAT 92
[2023-11-02 23:02] VITALS: BP 128/80; PULSE 76; RESP 22; O2SAT 96
--- NOTE | 2023-11-02 23:09 | ED.SOB ---
HPI - SOB/Dyspnea General Chief Complaint: Shortness of Breath/Dyspnea Stated Complaint: sob Time Seen by Provider: 11/02/23 21:24 Source: patient Mode of arrival: EMS Limitations: no limitations History of Present Illness HPI Narrative: patient is a 73-year-old male, with PMH of CAD, NPH s/p PROCESS CONTROLLER shunt, DM, agent orange exposure, who presents the ED via EMS with shortness of breath. 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 She reports patient was taking a nap this evening and woke up feeling suddenly short of breath. He is supposed to wear a BiPAP machine whenever he sleeps, but is frequently noncompliant with this. reports he often wakes up in the middle the night feeling short of breath. Patient tried walking around and calming himself, but began having worsening shortness breath, hyperventilation, wheezing. EMS was then called. reports by the time EMS arrived, his oxygen saturation was low. EMS reportedly placed patient on oxygen briefly before administering a nebulized treatment en route to the ED. Patient feeling much better by the time of arrival to the ED. denies any further shortness of breath. He did report mild chest tightness with the shortness breath, denied chest pain. Denies any current chest tightness or pain. reports mild cough, denies congestion, fevers, nausea, vomiting, abdominal pain. Patient denies past medical history of COPD or emphysema. He states he was previously prescribed inhaler, but has not used this much. Related Data Home Medications Medication Instructions Recorded Confirmed amlodipine 10 mg tablet 10 mg PO DAILY 11/30/19 09/15/23 aspirin 81 mg tablet,delayed 81 mg PO DAILY 11/30/19 09/15/23 release (Adult Aspirin Regimen) clopidogrel 75 mg tablet 75 mg PO DAILY 11/30/19 09/15/23 icosapent ethyl 1 gram capsule 2 gm PO BID 11/30/19 09/15/23 (Vascepa) latanoprost 0.005 % eye drops 1 drop ophthalmic (eye) DAILY 11/30/19 09/15/23 omeprazole 20 mg tablet,delayed 20 mg PO DAILY 11/30/19 09/15/23 release sertraline 100 mg tablet 100 mg PO DAILY 11/30/19 09/15/23 metoprolol tartrate 50 mg tablet 25 mg PO BID 05/31/22 09/15/23 insulin glargine 100 unit/mL (3 40 unit subcut HS 06/02/22 09/15/23 mL) subcutaneous pen (Lantus Solostar U-100 Insulin) rosuvastatin 40 mg tablet 40 mg PO DAILY 07/07/22 09/15/23 metformin 500 mg tablet 1,000 mg PO BID 08/05/23 09/15/23 vitamin B complex (B 1 tablet PO DAILY 08/05/23 09/15/23 Complex-Vitamin B12 tablet) Allergies Allergy/AdvReac Type Severity Reaction Status Date / Time codeine Allergy Unknown Nausea and Verified 09/15/23 13:03 Vomiting Review of Systems Review of Systems: CONSTITUTIONAL: Denies fever, chills, or sweats. CARDIOVASCULAR: see HPI. RESPIRATORY: See HPI. GASTROINTESTINAL: Denies abdominal pain, nausea, vomiting, or diarrhea. All systems reviewed & are unremarkable except as noted in HPI and below PMFSH Past Medical History Medical History Agent orange exposure WILNER positive Cataracts, both eyes Cervicalgia Common bile duct dilatation Coronary artery disease involving [place] artery of transplanted heart Depression Dizziness and giddiness Essential hypertension Gastrointestinal hemorrhage, unspecified Glaucoma Heartburn Hemorrhoids HTN (hypertension) Hyperlipidemia Hypokalemia director long term care (current) use of insulin Memory difficulties Normal pressure hydrocephalus Polycythemia Rotator cuff disorder Shoulder girdle symptom Type 2 diabetes mellitus with other circulatory complications Surgical History Surgical History History of cardiac cath History of cataract surgery (~1996) History of cataract surgery (~2001) History of cholecystectomy (~1994) History of heart artery stent History of hernia surgery (~2006) Status post double vessel coronary artery bypass (~
[2023-11-02 23:49] LABS: D Dimer < 0.27 ug/mL (<0.48)
[2023-11-03 00:34] LABS: Troponin I < 0.012 ng/mL (0.000-0.034)
[2023-11-03 01:13] VITALS: BP 112/86; PULSE 71; RESP 23; O2SAT 94
[2023-11-03 01:58] VITALS: BP 124/80; PULSE 72; RESP 17; TEMP 36.5; O2SAT 94
== END 2023-11-03 01:59 | disposition home or self-care (01) ==
PROVIDERS: Student in an Organized Health Care Education/Training Program; Emergency Provider Physician Assistant; PCP Internal Medicine
DX: J06.9 Acute upper respiratory infection, unspecified (principal); R06.02 Shortness of breath; G47.30 Sleep apnea, unspecified; R06.2 Wheezing; I25.10 Atherosclerotic heart disease of native coronary artery without angina pectoris; E11.9 Type 2 diabetes mellitus without complications; I10 Essential (primary) hypertension; Z79.4 Long term (current) use of insulin; Z87.891 Personal history of nicotine dependence; Z20.822 Contact with and (suspected) exposure to COVID-19
CPT/HCPCS: 36415; 71046; 80053; 83880; 84484; 85025; 85380; 87637; 93005; 99284

== ENCOUNTER 2023-12-03 11:00 | Outpatient (CLI) | payer MEDICARE, BC, SELFPAY ==
[2023-12-03 13:40] LABS: Hematocrit 42.5 % (42.0-52.0); Mean Corpuscular HGB Conc 30.6 g/dl (32-36); Mean Corpuscular Hemoglobin 25.1 pg (26-34); Mean Corpuscular Volume 82.2 fl (80-100); Mean Platelet Volume 10.4 fl (7.4-10.4); Platelet Count Result 396 k/mm3 (150-375); Red Blood Count 5.17 M/mm3 (4.6-6.20); Red Cell Distribution Width 16.4 % (11.5-14.5); White Blood Count 8.2 K/mm3 (4.5-10.0)
[2023-12-03 13:57] LABS: INR 0.9; Prothrombin Time 12.9 Seconds (11.1-14.7)
[2023-12-03 14:13] LABS: Hemoglobin A1C 8.1 % (<5.7)
[2023-12-03 14:17] LABS: Alanine Aminotransferase 63 U/L (6-50); Albumin Level 3.7 g/dL (3.5-5.1); Alkaline Phosphatase 90 U/L (38-126); Anion Gap 6 mmol/L (8-16); Aspartate Amino Transferase 50 U/L (17-59); Bilirubin,Total 0.5 mg/dL (0.2-1.3); Blood Urea Nitrogen 17 mg/dL (9-20); Calcium 9.3 mg/dL (8.4-10.2); Carbon Dioxide 30 mmol/L (22-30); Chloride 102 mmol/L (98-107); Estimated Glomerular Filt Rate > 60; Glucose 104 mg/dL (65-110); Potassium 3.9 mmol/L (3.4-5.0); Sodium 138 mmol/L (137-145)
[2023-12-03 16:21] LABS: Iron 49 ug/dL (49-181)
[2023-12-03 16:31] LABS: Percent Iron Saturation 10 % (20-50)
== END 2023-12-03 11:01 | disposition home or self-care (01) ==
LOC: ANHGOSHLAB 11:02
PROVIDERS: Nurse Practitioner Family; PCP Internal Medicine; Visit Provider Internal Medicine
DX: R74.8 Abnormal levels of other serum enzymes (principal); E11.59 Type 2 diabetes mellitus with other circulatory complications
CPT/HCPCS: 36415; 80053; 82728; 83036; 83540; 83550; 85027; 85610

== ENCOUNTER 2024-01-19 15:04 | Outpatient (CLI) | payer MEDICARE, BC, SELFPAY ==
--- NOTE | ~2024-01-19 | US_ITS ---
EXAMINATION: US soft tissue groin RT DATE: 01/19/2024 15:34 INDICATION: Right-sided groin swelling TECHNIQUE: Multiple grayscale and Doppler ultrasound images of the right groin were obtained. COMPARISON: None FINDINGS: There is approximately 7.0 x 3.0 x 5.2 cm loculated collection of fat and fluid at the medial aspect of the proximal right thigh. This appears to arise along side the right common femoral artery and vei n consistent with a femoral hernia. No evident herniated bowel. No inguinal hernia identified. IMPRESSION: 1. Moderate-sized right femoral hernia containing fat and small amount of fluid. Reviewed, dictated and finalized at location L. IMPRESSION: 1. Moderate-sized right femoral hernia containing fat and small amount of fluid .
== END 2024-01-19 15:05 ==
LOC: GOSHIMG 15:05
PROVIDERS: PCP Internal Medicine; Visit Provider Clinical Nurse Specialist
DX: R19.09 Other intra-abdominal and pelvic swelling, mass and lump (principal); K41.90 Unilateral femoral hernia, without obstruction or gangrene, not specified as recurrent; M79.89 Other specified soft tissue disorders
CPT/HCPCS: 76882

== ENCOUNTER 2024-04-18 13:48 | Outpatient (CLI) | payer MEDICARE, BC, SELFPAY ==
[2024-04-18 15:00] LABS: Basophils Absolute Auto 0.1 K/mm3 (0.0-0.1); Eosinophils Absolute Auto 0.1 K/mm3 (0-0.3); Eosinophils Percent Auto 0.8 % (0-4.4); Hematocrit 40.1 % (42.0-52.0); Hemoglobin 12.9 g/dL (14.0-18.0); Immature Granulocyte Absolute 0.03 K/mm3 (0.00-0.031); Immature Granulocyte Percent A 0.3 % (0-0.5); Lymphocytes Absolute Auto 0.92 K/mm3 (0.9-3.2); Lymphocytes Percent Auto 8.6 % (18.3-44.2); Mean Corpuscular HGB Conc 32.2 g/dl (32-36); Mean Corpuscular Hemoglobin 27.8 pg (26-34); Mean Corpuscular Volume 86.4 fl (80-100); Mean Platelet Volume 9.8 fl (7.4-10.4); Monocytes Percent Auto 9.7 % (2.6-8.5); Neutrophils Absolute Auto 8.6 K/mm3 (1.3-6.7); Neutrophils Percent Auto 79.6 % (45.5-73.1); Platelet Count Result 524 k/mm3 (150-375); Red Blood Count 4.64 M/mm3 (4.6-6.20); Red Cell Distribution Width 17.2 % (11.5-14.5); White Blood Count 10.8 K/mm3 (4.5-10.0)
[2024-04-18 16:28] LABS: Anion Gap 4 mmol/L (4-12); Blood Urea Nitrogen 16 mg/dL (9-20); Calcium 9.2 mg/dL (8.4-10.2); Carbon Dioxide 31 mmol/L (22-30); Chloride 98 mmol/L (98-107); Estimated Glomerular Filt Rate > 60; Glucose 260 mg/dL (65-110); Potassium 4.4 mmol/L (3.4-5.0); Sodium 133 mmol/L (137-145)
== END 2024-04-18 13:49 | disposition home or self-care (01) ==
LOC: ANHGOSHLAB 13:50
PROVIDERS: PCP Internal Medicine; Visit Provider Internal Medicine
DX: D50.9 Iron deficiency anemia, unspecified (principal); E11.59 Type 2 diabetes mellitus with other circulatory complications
CPT/HCPCS: 36415; 80048; 82607; 82728; 82746; 85025

== ENCOUNTER 2024-06-24 11:01 | Outpatient (CLI) | payer MEDICARE, BC, SELFPAY ==
--- NOTE | 2024-06-28 11:18 | WPDNEUROLOGY ---
Neurology EEG Report General Information Date of Study: 06/24/24 TEST eeg DIAGNOSIS Disorientation CONDITION OF RECORDING drowsy and asleep EEG NUMBER [id number] CLINICAL HISTORY patient reports he is having trouble with confusion and memory loss. EEG DESCRIPTION Background rhythm consists of low to medium voltage 6 to 7 hertz per 2nd theta activity admixed with intermittent low-voltage 15 to 18 hertz per 2nd beta activity and multiple movements artifacts. Poor ethan posterior gradient is noted. Bilateral symmetrical sleep activity is seen with symmetrical sleep spindles. Hyperventilation not done. Photic stimulation produced poor drive. Non paroxysmal. Nonfocal. Non lateralizing. IMPRESSION Normal record during drowsiness and sleep also with photic stimulation. Clinical correlation recommended there is no evidence of any paroxysmal phenomena or focal or diffuse slow activity consider the possibility of metabolic or structural abnormalities.
== END 2024-06-24 11:02 | disposition home or self-care (01) ==
LOC: ANHNEURO 11:02
PROVIDERS: PCP Internal Medicine; Visit Provider Internal Medicine
DX: R41.0 Disorientation, unspecified (principal); G91.2 (Idiopathic) normal pressure hydrocephalus
CPT/HCPCS: 95816

== ENCOUNTER 2024-07-19 14:03 | Outpatient (CLI) | payer MEDICARE, BC, SELFPAY ==
[2024-07-19 18:56] LABS: Basophils Absolute Auto 0.1 K/mm3 (0.0-0.1); Basophils Percent Auto 0.9 % (0.2-1.2); Eosinophils Absolute Auto 0.5 K/mm3 (0-0.3); Eosinophils Percent Auto 5.1 % (0-4.4); Hematocrit 47.5 % (42.0-52.0); Hemoglobin 15.7 g/dL (14.0-18.0); Immature Granulocyte Absolute 0.02 K/mm3 (0.00-0.031); Immature Granulocyte Percent A 0.2 % (0-0.5); Lymphocytes Absolute Auto 1.21 K/mm3 (0.9-3.2); Lymphocytes Percent Auto 13.1 % (18.3-44.2); Mean Corpuscular HGB Conc 33.1 g/dl (32-36); Mean Corpuscular Hemoglobin 28.7 pg (26-34); Mean Corpuscular Volume 86.8 fl (80-100); Monocytes Absolute Auto 0.8 K/mm3 (0.1-0.6); Monocytes Percent Auto 8.2 % (2.6-8.5); Neutrophils Absolute Auto 6.7 K/mm3 (1.3-6.7); Neutrophils Percent Auto 72.5 % (45.5-73.1); Platelet Count Result 314 k/mm3 (150-375); Red Blood Count 5.47 M/mm3 (4.6-6.20); Red Cell Distribution Width 16.6 % (11.5-14.5); White Blood Count 9.2 K/mm3 (4.5-10.0)
[2024-07-19 19:01] LABS: Alanine Aminotransferase 237 U/L (6-50); Albumin Level 3.9 g/dL (3.5-5.1); Alkaline Phosphatase 83 U/L (38-126); Anion Gap 9 mmol/L (4-12); Aspartate Amino Transferase 124 U/L (17-59); Bilirubin,Total 0.4 mg/dL (0.2-1.3); Blood Urea Nitrogen 22 mg/dL (9-20); Calcium 9.3 mg/dL (8.4-10.2); Carbon Dioxide 30 mmol/L (22-30); Chloride 97 mmol/L (98-107); Estimated Glomerular Filt Rate > 60; Glucose 187 mg/dL (65-110); Potassium 4.3 mmol/L (3.4-5.0); Sodium 136 mmol/L (137-145)
[2024-07-19 19:32] LABS: Hemoglobin A1C 8.3 % (<5.7)
== END 2024-07-19 14:04 | disposition home or self-care (01) ==
LOC: ANHGOSHLAB 14:06
PROVIDERS: PCP Internal Medicine; Visit Provider Internal Medicine
DX: D64.9 Anemia, unspecified (principal); E11.59 Type 2 diabetes mellitus with other circulatory complications; R74.8 Abnormal levels of other serum enzymes
CPT/HCPCS: 36415; 80053; 82728; 83036; 85025

== ENCOUNTER 2024-09-14 17:05 | Emergency (ER) | payer MEDICARE, BC, SELFPAY ==
[2024-09-14] VITALS (17 sets, daily range): BP systolic 150–176; BP diastolic 69–86; PULSE 55–62; RESP 11–22; TEMP 36.4; O2SAT 94–98
--- NOTE | ~2024-09-14 | CT_ITS ---
CLINICAL INDICATION: Remote fall from a standing position approximately 1 week earlier, complaining o f lower back pain COMPARISON: None. TECHNIQUE: An enhanced CT of the chest, abdomen, pelvis, thoracic and lumbar spines was performed uti lizing multislice spiral technique reconstructed at 2.5 mm slice thickness. Coronal and sagittal rec onstructions were performed. This CT examination was performed utilizing dose reduction techniques. DLP: 938 mGy-cm FINDINGS/OBSERVATIONS: Lung:The bilateral lung dodd are clear. A large hiatal hernia is present, with overlying atelectasis. Mediastinum: No pathologically enlarged or morphologically suspicious lymph nodes are identified with in the mediastinum or within the bilateral axilla. The heart is of normal size, without pericardial effusion. Soft tissues of the chest: Small bore catheter coursing within the soft tissues overlying the anterio r chest wall, to the right of midline. Bones of the chest: No lytic or blastic lesions are identified. No acute fractures are present. Liver: The liver enhances homogeneously and is not enlarged measuring 16 cm in longitudinal dimension . Gallbladder and biliary system: The gallbladder is surgically absent. Pancreas: The pancreas enhances homogeneously and demonstrates atrophy of the of the pancreatic tail. No ductal dilatation is appreciated. Spleen: Spleen enhances homogeneously, and is not enlarged. Kidneys: The bilateral kidneys enhance symmetrically without hydronephrosis or renal calculi. Adrenal glands: Unremarkable Gastrointestinal tract: Colonic diverticulosis without surrounding inflammatory change. Fecal stasis distends the rectum, possibly the source of patient's lower back pain. Appendix:The air-filled appendix is of normal caliber (axial sequence, image 196). Vasculature: Calcified atherosclerotic disease within the abdominal aorta without aneurysmal dilatati on, dissection or significant stenosis. Lymph nodes: No pathologically enlarged or morphologically suspicious lymph nodes within the retroper itoneum or at the root of the mesentery. Pelvic structures:The bladder is significantly distended, but otherwise unremarkable. The prostate gland is heterogeneous, and not enlarged. Body wall and musculoskeletal: Trace degenerative disease is identified within the lumbosacral spine, most prominent at the level of L2/L3 with osteophyte formation and a Schmorl's node identified. Facet arthropathy is also noted. No acute compression fracture is present. No significant degenerative disease is identified within the thoracic spine. No compression fractures are noted. Sternal wires are present. IMPRESSION: Fecal stasis markedly distending the rectum suggesting fecal impaction. No acute fracture within either the lumbar or thoracic spine. Large hiatal hernia identified with surrounding atelectasis. Reviewed, dictated and finalized at location A. RETE TESTER
--- NOTE | ~2024-09-14 | CT_ITS ---
History: Fall from standing height 1 week earlier. Complaining of lower back pain. PROCEDURE: CT cervical spine without intravenous contrast. COMPARISON: Reference is made to an MRI of the lumbar spine performed 08/21/2015 TECHNIQUE: Multiple contiguous axial images of the cervical spine were performed without the administration of i ntravenous contrast. DLP: 499 mGy-cm FINDINGS: Straightening of the normal curvature of the cervical spine is identified. No acute fractures are present. Severe degenerative disease is noted, with osteophyte formation, disc space narrowing, endplate womack es and vacuum phenomena. Ankylosis and facet arthropathy is also noted. The bilateral lung apices are unremarkable. Redemonstration of the right-sided ventriculoperitoneal shunt in the soft tissues of the right neck. The airway is unremarkable. Impression: Straightening of the normal curvature of the cervical spine. Severe degenerative disease, without acute fracture. Reviewed, dictated and finalized at location A. OGRAPHICS TECHNICIAN Impression: Straightening of the normal curvature of the cervical spine. Severe degenerative disease, without acute fracture.
--- NOTE | ~2024-09-14 | CT_ITS ---
History: 74-year-old gentleman, currently ambulatory, presents with lower back pain after a remote hi story of a fall from standing height. Plavix and aspirin. Unknown loss of consciousness. PROCEDURE: CT head without contrast. COMPARISON: None TECHNIQUE: Axial imaging of the head performed from the skull base to the vertex without IV contrast. Sagittal a nd coronal reformations obtained. DLP: 681 mGy-cm FINDINGS: The ventricles are dilated. The degree of dilatation is proportional to the sulcal prominence. A small bore catheter is identified extending from the body of the left lateral ventricle across to t he right lateral ventricle, and exiting through the posterior horn of the right lateral ventricle whe re it traverses both the parenchyma and the overlying cranium extending along the soft tissues of the right neck. There is no mass, mass effect or midline shift. There is no abnormal extra-axial fluid collection or intracranial hemorrhage. Densely calcified atherosclerotic disease is identified. Calcification of the falx is also noted. Mucoperiosteal thickening of the left maxillary sinus is identified along with scattered inflammatory change within the bilateral ethmoid sinuses. Remaining paranasal sinuses are otherwise clear. The mastoid air cells are well aerated. No acute displaced fractures within the overlying cranium. Impression: No acute intracranial hemorrhage or suspicious mass effect, as detailed above. Inflammatory sinus disease Reviewed, dictated and finalized at location A. ANCE WILDLIFE TRAPPER Impression: No acute intracranial hemorrhage or suspicious mass effect, as detailed above. Inflammatory sinus disease
--- NOTE | 2024-09-14 17:29 | ED.FALL ---
HPI - Fall General Chief Complaint: Fall Stated Complaint: fall a week ago, c/o back pain, HI (brain shunt) Time Seen by Provider: 09/14/24 17:16 Source: patient Mode of arrival: ambulatory Limitations: no limitations History of Present Illness HPI Narrative: This is a 74 year old male that presents to the ER for low back pain after a fall about a week ago. Reports he slipped and fell in the shower. Reports hitting his head and back. He has had worsening lower back pain since. He does take aspirin and plavix. Denies vision changes, vomiting, numbness or weakness. Related Data Home Medications Medication Instructions Recorded Confirmed aspirin 81 mg tablet,delayed 81 mg PO DAILY 11/30/19 07/19/24 release (Adult Aspirin Regimen) clopidogrel 75 mg tablet 75 mg PO DAILY 11/30/19 07/19/24 latanoprost 0.005 % eye drops 1 drop ophthalmic (eye) DAILY 11/30/19 07/19/24 omeprazole 20 mg tablet,delayed 20 mg PO DAILY 11/30/19 07/19/24 release sertraline 100 mg tablet 100 mg PO DAILY 11/30/19 07/19/24 metformin 500 mg tablet 1,000 mg PO BID 08/05/23 07/19/24 rosuvastatin 20 mg tablet 20 mg PO DAILY 06/07/24 07/19/24 amlodipine 2.5 mg tablet 2.5 mg PO DAILY 07/19/24 07/19/24 fluticasone 250 mcg-salmeterol 50 1 inh inhalation BID 07/19/24 07/19/24 mcg/dose blistr powdr for inhalation (Wixela Inhub) metoprolol tartrate 50 mg tablet 25 mg PO BID 07/19/24 07/19/24 insulin glargine 100 unit/mL (3 60 unit subcut HS 07/22/24 mL) subcutaneous pen (Lantus Solostar U-100 Insulin) Allergies Allergy/AdvReac Type Severity Reaction Status Date / Time codeine AdvReac Unknown Nausea and Verified 09/14/24 19:03 Vomiting Review of Systems Review of Systems: CONSTITUTIONAL: Denies fever EYES: Denies visual changes CARDIOVASCULAR: Denies chest pain GASTROINTESTINAL: Denies vomiting MUSCULOSKELETAL: Reports back pain, joint pain, and myalgia. NEUROLOGIC: Denies numbness, or weakness. All systems reviewed & are unremarkable except as noted in HPI and below PMFSH Past Medical History Medical History (Updated 09/14/24 @ 20:04 by Arlette Mendez PA-C) Agent orange exposure WILNER positive Cataracts, both eyes Cervicalgia Common bile duct dilatation Coronary artery disease involving [place] artery of transplanted heart Dementia Depression Dizziness and giddiness Essential hypertension Gastrointestinal hemorrhage, unspecified Glaucoma Heartburn Hemorrhoids HTN (hypertension) Hyperlipidemia Hypokalemia custodial (current) use of insulin Memory difficulties Mild cognitive impairment Normal pressure hydrocephalus Polycythemia Primary mucinous adenocarcinoma of appendix Rotator cuff disorder Shoulder girdle symptom Type 2 diabetes mellitus with other circulatory complications Surgical History Surgical History History of cardiac cath History of cataract surgery (~1996) History of cataract surgery (~2001) History of cholecystectomy (~1994) History of heart artery stent History of hernia surgery (~2006) Status post double vessel coronary artery bypass (~1985) Status post double vessel coronary artery bypass (~2000) Family History Family History Unknown Heart disease Other Family history of alcoholism Hypertension Social History Social History Smoking packs per day: 3 Smoking cigarettes per day: 60.0 Years smoked: 15 Smoking pack-years: 45.00 Smoking status: Former smoker Tobacco type: cigarettes Smoking end date: 11/09/84 Alcohol intake: current Alcohol use details: occasionally Substance use: never Substance use type: does not use Do You Feel Safe in your Home?: Yes Lack of Transportation: No Lack of Food: Never True Current Housing: I Have Housing Concerned About Future Housing: No Difficulty Paying Gas/Electric Bills: No Difficulty Paying for Meds: No Currently Unemployed: No Education: Bachelor's Degree Difficulty w/ Childcare or Family Care: No Spiritual care concerns: No Exam Narrative: GENERAL: Elderly, well-nourished, and in no acute distress. HEAD: Normocephalic, atraumatic. EYES: PERRLA and EOMI. ENT: Nares clear, no rhinorrhea or epistaxis. Mucous membranes moist. Oropharynx without tonsillar hypertrophy exudate or other lesions. Bilateral TMs pearly killian non-bulging NECK: Supple. No adenopathy or masses. CHEST: Clear to auscultation. No respiratory distress. No wheezes rales or rhonchi HEART: Regular rate and rhythm. No murmur heard. Normal peripheral pulses. ABDOMEN: Soft, nontender, nondistended, normal active bowel sounds. BACK: Tender to palpation of midline lumbar spine EXTREMITIES: Normal range of motion. No edema. SKIN: Warm, dry, no rash. NEURO: No focal deficits. Alert and oriented x3. Cranial nerves 2-12 grossly intact PSYCH: Normal mood and affect Course Course Emergency Course: Patient updated on his workup. Defers rectal disimpaction/enema at this time. Reports he will take stool softeners as home Vital Signs Vital signs: Vital Signs Temperature 97.6 F 09/14/24 17:12 Pulse Rate 55 L 09/14/24 17:12 Respiratory Rate 14 09/14/24 17:12 Blood Pressure 156/69 H 09/14/24 17:12 Pulse Oximetry 98 09/14/24 17:12 Oxygen Delivery Room Air 09/14/24 17:12 Temperature 97.6 F 09/14/24 17:12 Pulse Rate 59 L 09/14/24 19:01 Respiratory Rate 21 H 09/14/24 19:01 Blood Pressure 164/84 H 09/14/24 19:01 Pulse Oximetry 95 09/14/24 19:01 Oxygen Delivery Room Air 09/14/24 17:12 MDM - Fall MDM Narrative Medical decision making narrative: patient presents to the emergency department after a fall about a week ago with head injury and low back pain. Patient is neurologically intact. His vitals are stable. CT brain and cervical spine without exam findings. CT chest/abdomen / pelvis / thoracic/lumbar spine without acute posttraumatic findings. Does show some evidence of fecal impaction. Patient updated on his workup. Defers disimpaction/enema at this time. Reports he will take stool softeners at home. Patient is to follow up with primary provider. He was given warnings to return to the ER Differential Diagnosis Differential diagnosis: Likely compression fracture, concussion without loss of consciousness and other (subdural hematoma, intra-abdominal trauma, intra-thoracic trauma) Lab Data Attestation: I reviewed the patient's lab results. 09/14/24 17:25 09/14/24 17:25 Labs: Lab Results 09/14/24 Range/Units 17:25 WBC 10.9 H (4.5-10.0) K/mm3 RBC 5.39 (4.6-6.20) M/mm3 Hgb 16.4 (14.0-18.0) g/dL Hct 47.0 (42.0-52.0) % MCV 87.2 (80-100) fl MCH 30.4 (26-34) pg MCHC 34.9 (32-36) g/dl RDW 16.3 H (11.5-14.5) % Plt Count 285 (150-375) k/mm3 MPV 10.3 (7.4-10.4) fl Immature Gran % (Auto) 0.4 (0-0.5) % Neut % (Auto) 75.7 H (45.5-73.1) % Lymph % (Auto) 12.4 L (18.3-44.2) % Blanco % (Auto) 7.1 (2.6-8.5) % Eos % (Auto) 3.6 (0-4.4) % Baso % (Auto) 0.8 (0.2-1.2) % Lymph # (Auto) 1.35 (0.9-3.2) K/mm3 Blanco # (Auto) 0.8 H (0.1-0.6) K/mm3 Eos # (Auto) 0.4 H (0-0.3) K/mm3 Baso # (Auto) 0.1 (0.0-0.1) K/mm3 Abs Immat Gran (auto) 0.04 H (0.00-0.031) K/mm3 Absolute Neuts (auto) 8.3 H (1.3-6.7) K/mm3 Absolute Nucleated RBC 0.000 (0.0-0.012) K/mm3 Nucleated RBC % 0.0 (0.0-0.2) % Sodium 139 (137-145) mmol/L Potassium 4.0 (3.4-5.0) mmol/L Chloride 102 (98-107) mmol/L Carbon Dioxide 33 H (22-30) mmol/L Anion Gap 4 (4-12) mmol/L BUN 15 D (9-20) mg/dL Creatinine 0.90 (0.7-1.3) mg/dL Estim Creat Clear Calc 63 ml/min Estimated GFR > 60 (59 - ) Glucose 136 H (65-110) mg/dL Calcium 9.3 (8.4-10.2) mg/dL Total Bilirubin 0.6 (0.2-1.3) mg/dL AST 49 (17-59) U/L ALT 77 H (6-50) U/L Alkaline Phosphatase 78 (38-126) U/L Total Protein 7.0 (6.3-8.2) g/dL Albumin 4.0 (3.5-5.1) g/dL Imaging Data Radiologist's impression: ITS Impressions Head CT 09/14/24 18:52 Impression: No acute intracranial hemorrhage or suspicious mass effect, as detailed above. Inflammatory sinus disease Cervical Spine CT 09/14/24 19:08 Impression: Straightening of the normal curvature of the cervical spine. Severe degenerative disease, without acute fracture. Chest/Abdomen/Pelvis/Spine CT 09/14/24 19:29 IMPRESSION: Fecal stasis markedly distending the rectum suggesting fecal impaction. No acute fracture within either the lumbar or thoracic spine. Large hiatal hernia identified with surrounding atelectasis. Critical Care Time Critical Care Time Critical Care Time: No Discharge Plan Discharge Clinical Impression: Constipation Qualifiers: Constipation type: unspecified constipation type Qualified Code(s): K59.00 - Constipation, unspecified Low back pain Qualifiers: Chronicity: acute Back pain laterality: midline Sciatica presence: without sciatica Qualified Code(s): M54.50 - Low back pain, unspecified Patient Disposition: Home, Self-Care Condition: Stable Instructions: Constipation (ED), Acute Low Back Pain (ED) Additional Instructions: Return to the emergency department if you experience fever, chest pain, shortness of breath, abdominal pain with nausea and vomiting, weakness, numbness, or any other symptoms that are concerning to you. Rest. Ice to the area. Over the counter pain medication as needed. Remain well hydrated, colace daily for constipation Follow up with your primary care doctor Prescriptions: No Action metformin 500 mg tablet 1,000 mg PO BID fluticasone propion-salmeterol [Wixela Inhub] 250-50 mcg/dose blister with device 1 inh inhalation BID metoprolol tartrate 50 mg tablet 25 mg PO BID amlodipine 2.5 mg tablet 2.5 mg PO DAILY aspirin [Adult Aspirin Regimen] 81 mg tablet,delayed release (DR/EC) 81 mg PO DAILY clopidogrel 75 mg tablet 75 mg PO DAILY omeprazole 20 mg tablet,delayed release (DR/EC) 20 mg PO DAILY sertraline 100 mg tablet 100 mg PO DAILY latanoprost 0.005 % drops 1 drop EACH EYE DAILY ezetimibe 10 mg tablet 10 mg PO DAILY Qty: 90 2RF rosuvastatin 20 mg tablet 20 mg PO DAILY albuterol sulfate 90 mcg/actuation HFA aerosol inhaler 2 puff inhalation QID PRN (Reason: shortness of breath or wheezing) Qty: 6.7 0RF ferrous sulfate [FeroSul] 325 mg (65 mg iron) tablet See Rx Instructions .ROUTE .COMPLEX Qty: 90 1RF Dose Instruction: TAKE 1 TABLET BY MOUTH EVERY DAY Rx Instructions: TAKE 1 TABLET BY MOUTH EVERY DAY insulin glargine [Lantus Solostar U-100 Insulin] 100 unit/mL (3 mL) insulin pen 60 unit SUBCUT HS rivastigmine 4.6 mg/24 hour patch 24 hour 4.6 mg transdermal DAILY Qty: 30 1RF Follow-up/Referrals: Vishal Ibarra, [Primary Care Provider] -
[2024-09-14 17:31] LABS: Basophils Absolute Auto 0.1 K/mm3 (0.0-0.1); Basophils Percent Auto 0.8 % (0.2-1.2); Eosinophils Absolute Auto 0.4 K/mm3 (0-0.3); Eosinophils Percent Auto 3.6 % (0-4.4); Hemoglobin 16.4 g/dL (14.0-18.0); Immature Granulocyte Absolute 0.04 K/mm3 (0.00-0.031); Immature Granulocyte Percent A 0.4 % (0-0.5); Lymphocytes Absolute Auto 1.35 K/mm3 (0.9-3.2); Lymphocytes Percent Auto 12.4 % (18.3-44.2); Mean Corpuscular HGB Conc 34.9 g/dl (32-36); Mean Corpuscular Hemoglobin 30.4 pg (26-34); Mean Corpuscular Volume 87.2 fl (80-100); Mean Platelet Volume 10.3 fl (7.4-10.4); Monocytes Absolute Auto 0.8 K/mm3 (0.1-0.6); Monocytes Percent Auto 7.1 % (2.6-8.5); Neutrophils Absolute Auto 8.3 K/mm3 (1.3-6.7); Neutrophils Percent Auto 75.7 % (45.5-73.1); Platelet Count Result 285 k/mm3 (150-375); Red Blood Count 5.39 M/mm3 (4.6-6.20); Red Cell Distribution Width 16.3 % (11.5-14.5); White Blood Count 10.9 K/mm3 (4.5-10.0)
[2024-09-14 17:43] LABS: Alanine Aminotransferase 77 U/L (6-50); Alkaline Phosphatase 78 U/L (38-126); Anion Gap 4 mmol/L (4-12); Aspartate Amino Transferase 49 U/L (17-59); Bilirubin,Total 0.6 mg/dL (0.2-1.3); Blood Urea Nitrogen 15 mg/dL (9-20); Calcium 9.3 mg/dL (8.4-10.2); Carbon Dioxide 33 mmol/L (22-30); Chloride 102 mmol/L (98-107); Estimated CRCL calculation 63 ml/min; Estimated Glomerular Filt Rate > 60; Glucose 136 mg/dL (65-110); Sodium 139 mmol/L (137-145)
== END 2024-09-14 20:25 | disposition home or self-care (01) ==
PROVIDERS: Emergency Provider Physician Assistant; PCP Internal Medicine
DX: S39.92XA Unspecified injury of lower back, initial encounter (principal); K59.00 Constipation, unspecified; F03.90 Unspecified dementia, unspecified severity, without behavioral disturbance, psychotic disturbance, mood disturbance, and anxiety; I25.811 Atherosclerosis of native coronary artery of transplanted heart without angina pectoris; I10 Essential (primary) hypertension; E11.59 Type 2 diabetes mellitus with other circulatory complications; E78.5 Hyperlipidemia, unspecified; H40.9 Unspecified glaucoma; G31.84 Mild cognitive impairment of uncertain or unknown etiology; Z95.1 Presence of aortocoronary bypass graft; Z95.5 Presence of coronary angioplasty implant and graft; Z87.891 Personal history of nicotine dependence; Z90.49 Acquired absence of other specified parts of digestive tract; Z98.49 Cataract extraction status, unspecified eye; Z79.82 Long term (current) use of aspirin; Z79.02 Long term (current) use of antithrombotics/antiplatelets; Z79.4 Long term (current) use of insulin; Z79.84 Long term (current) use of oral hypoglycemic drugs; Z79.899 Other long term (current) drug therapy; M50.30 Other cervical disc degeneration, unspecified cervical region; K44.9 Diaphragmatic hernia without obstruction or gangrene; J32.9 Chronic sinusitis, unspecified; W18.2XXA Fall in (into) shower or empty bathtub, initial encounter; Y93.E1 Activity, personal bathing and showering
CPT/HCPCS: 36415; 70450; 71260; 72125; 72129; 72132; 74177; 80053; 85025; 99284; Q9967

== ENCOUNTER 2025-02-23 12:31 | Outpatient (CLI) | payer MEDICARE, BC, SELFPAY ==
--- OUTSIDE RECORDS SUMMARY | 2025-02-23 12:48 | XMS_ITS | Clinical Summary ---
Author Organization [facility] Address [address] [place] [address] Care Team Providers Care Risk Compliance Analyst Name Role Phone Vishal Ibarra DO Primary Care Provider Albino Reagan MD Unavailable [phone] Active Problems Problem Noted Date Diagnosed Date Weakness 09/20/2024 Abnormality of gait and mobility 09/20/2024 Idiopathic normal pressure hydrocephalus (CMS/HC C [facility]) 12/18/2023 Frequent falls 12/18/2023 Encounters Date Type Department Care Team Description 11/25/2024 1:45 PM INSTRUMENT MAKER APPRENTICE - 11/25/2024 11:59 PM INSTRUMENT MAKER APPRENTICE Hospital Encounter [facility] [address] [place] [address] Vishal Ibarra, Mariluz Vasques, SUPERVISOR ELECTRIC Weakness; Multiple Falls Discharge Disposition: Home or Self Care (Routine Discharge) 11/25/2024 Travel from Last 3 Months Social History Tobacco Use Types Packs/Day Years Used Date Smoking Tobacco: Never Assessed Sex and Gender Information Value Date Recorded Sex Assigned at Male 11/22/2024 1:47 PM INSTRUMENT MAKER APPRENTICE Legal Sex Male 5:39 PM CDT Gender Identity Not on file Sexual Orientation Not on file Plan of Treatment Health Maintenance Due Date Last Done Comments Colorectal Cancer Screening Colonoscopy (10 Years) 1950 Annual Medicare Wellness Visit 2015 Zoster Vaccines (3 of 3) 03/03/2024 01/07/2024, 06/10 PHQ-2 (Physician [place]) 11/09/2024 COVID-19 Vaccine ( season) 2025 08/27/2024, 08/28/2023, 09/06/2021, Additional history exists DTaP, Tdap and Td Vaccines (3 - Td or Tdap) 02/17/2028 02/16/2018, 08/11/2010 Pneumococcal Vaccine: 50+ Years Completed 09/24/2018, 07/10/2015 Hepatitis C Completed 06/30/2019 RSV Immunization or 60+ Years Completed 09/14/2024 Meningococcal B Vaccine Aged Out No l onger eligible based on patient's age to complete this topic Meningococcal Vaccine Aged Out No jere rivera eligible based on patient's age to complete this topic RSV Immunizations Under 20 Months Aged Out No longer eligible based on patient's age to complete this topic Procedures Procedure Name Priority Date/Time Associated Diagnosis Comments HEPATITIS C ANTIBODY Routine 06/30/2019 11:04 AM CDT Effusion of scapula from Last 3 Months or Most Recently Relevant to Health Maintenance Results * HEPATITIS C ANTIBODY (06/30/2019 11:04 AM CDT) HEPATITIS C AB NON-REACTI VE NON-REACTI VE 06/30/2019 2:52 PM CDT [facility] 06/30/2019 11:0 4 AM CDT Vishal Ibarra DO LABORATORY Final Resul t [facility] [address] [place] [address], from Last 3 Months or Most Recently Relevant to Health Maintenance Insurance MEDICARE [facility] Care Teams Risk Compliance Analyst Relationship Specialty Start Date End Date Vishal Ibarra DO [address] [place] [address] PCP - General INTERNAL MEDICINE 06/23/19 Albino Reagan MD [address] [place] [id number] NEUROLOGY 12/23/23
--- OUTSIDE RECORDS SUMMARY | 2025-02-23 12:48 | XMS_ITS | Clinical Summary ---
Author Organization [email or web address] Address [address] [place] [address] Care Team Providers Care Labelling Machine Operator Name Role Phone Unavailable Primary Care Provider Unavailabl e Source Comments [email or web address],non-owned Affiliates and Associated Physician Practices is amultiple site organization consisting of ambulatory clinics and hospital sitesin [place], [place], [place] and [place]. This disclosure is being madepursuant to the Care Everywhere program and may not contain all information available regarding this patient. Last updated 18.[email or web address] Social History Tobacco Use Types Packs/Day Years Used Date Smoking Tobacco: Never Assessed Sex and Gender Information Value Date Recorded Sex Assigned at Not on file Legal Sex Male 10:53 AM CURTAIN MENDER Gender Identity Not on file Sexual Orientation Not on file Plan of Treatment Health Maintenance Due Date Last Done Comments COLOGUARD (AGES 45-75) - COL ON CA SCREENING 1950 COLON MONITORING 1950 COLONOSCOPY - COLON CA SCREENING 1950 CT COLONOGRAPHY - COLON CA SCREENING 1950 Colorectal Cancer Screening 1950 FIT - COLON CA SCREENING 1950 FLEX SIG - COLON CA SCREENING 1950 LIPID TESTING 1950 MEDICARE AWV 12 MONTHS 1950 HEPATITIS C SCREENING 04/24/1968 DTAP/TDAP/TD VACCINES (1 - Tdap) 1969 PNEUMOCOCCAL VACCINE 50+ (1 of 1 - PCV) 2000 ZOSTER VACCINE (1 of 2) 2000 COVID-19 VACCINE ( - 2023-2 5 season) 2024 DEPRESSION SCREENING 11/09/2024 Respiratory Syncytial Virus (RSV) Vaccine Pt: or over 60 yrs (1 - 1-dose 75+ series) 2025 INFLUENZA VACCINE (Season Ended) 2025 HEPATITIS B VACCINE Aged Out No longe r eligible based on patient's age to complete this topic HIB VACCINE Aged Out No longer eligi ble based on patient's age to complete this topic HPV VACCINE Aged Out No longer eligi ble based on patient's age to complete this topic MENINGOCOCCAL (Group B) VACC INE SHARED DECISION-MAKING Aged Out No longer eligibl e based on patient's age to complete this topic MENINGOCOCCAL GROUPS A/C/Y/W VACCINE Aged Out No longer eligible b ased on patient's age to complete this topic Insurance MEDICARE [facility]
--- OUTSIDE RECORDS SUMMARY | 2025-02-23 12:48 | XMS_ITS | Clinical Summary ---
Author Organization [facility] al Address [address] [place] [address] Care Team Providers Care Wound Nurse Name Role Phone Vishal Ibarra DO Primary Care Provider [phone] Arlette Phillips ENTERPRISE SYSTEMS ARCHITECT Unavailable [phone] Allergies Active Allergy Reactions Criticality Noted Date Comments Codeine Other (See comments) Medium 08/22/2009 Chest pain, n/v Lisinopril Unknown 09/07/2007 Other Unknown 06/08/2023 Medications albuterol HFA (PROVENTIL HFA,VENTOLIN HFA,PROAIR HFA) 90 mcg/actuation inhaler every 6 hours Active ezetimibe (ZETIA) 10 mg tablet Take 1 tablet (10 mg total) by mouth daily 2 Active omeprazole (PriLOSEC) 10 mg capsule Take 2 capsules (20 mg total) by mouth daily Active latanoprost (XALATAN) 0.005 % ophthalmic solution 3 Active sertraline (ZOLOFT) 100 mg tablet TAKE 2 TABLETS BY MOUTH ONCE DAILY. 60 tablet 3 3 Active metoprolol tartrate (LOPRESSOR) 25 mg immediate release tablet Take 1 tablet (25 mg total) by mouth 2 (two) times a day Active aspirin 81 mg enteric coated tablet Take 1 tablet (81 mg total) by mouth daily You may resume taking on 01/18/2023 3 Active clopidogreL (PLAVIX) 75 mg tablet You may resume taking on 01/22/2023 3 Active metFORMIN XR (GLUCOPHAGE XR) 500 mg 24 hr tablet Take 4 tablets (2,000 mg total) by mouth daily with breakfast 3 Active Additional Information Patient taking differently:2,000 mg oral Daily with breakfast,Pt says he now takes 5 tabs since 02/23/23., Reported on 10/27/2024 insulin glargine 100 unit/mL (3 mL) pen for injection 3 Active rosuvastatin (CRESTOR) 40 mg tablet 4 Active fluticasone propion/salmeter ol (WIXELA INHUB INHAL) 4 Active fluticasone propion-salmeter oL (ADVAIR DISKUS) 250-50 mcg/dose diskus inhaler Inhale 4 Active ferrous sulfate 325 mg (65 mg of elemental iron) tablet 1 tablet (325 mg total) 4 Active budesonide-formo teroL (SYMBICORT) 160-4.5 mcg/actuation inhaler Active ipratropium-albu teroL (DUO-NEB) 0.5-2.5 mg/3 mL nebulizer solution 3 mL 4 Active methylPREDNISolo ne (MEDROL) 4 mg tablet as directed 4 Active mineral oil/petrolatum,w kristie (WHITE PETROLATUM-VEGETABLE HANDLER AL OIL OPHT) Administer into affected eye(s) 3 Active nitroglycerin (NITROSTAT) 0.4 mg SL tablet 1 tablet (0.4 mg total) 4 Active polyvinyl alcohol-povidone (REFRESH CLASSIC) 1.4-0.6 % dropperette Administer into affected eye(s) 3 Active tiZANidine (ZANAFLEX) 2 mg tablet Active Active Problems Problem Noted Date Diagnosed Date Progressive dementia with uncertain etiology Assessment & Plan (07/04/2024 3:23 PM CDT): With patient's history of cancer, we will wait on starting trial of acetylcholinesterase inhibitors. We briefly discussed lecanemab/Leqembi and the START study and CS states she is hesitant to start patient on anything with his recent delirious episode. Continue following up with psychologist at the [facility]. His blood pressure was elevated today. He denies any signs of hypertensive crisis except for chest tightness. I explained if his chest tightness worsened, he should go to the nearest ER. CS states she will have him follow-up with his mold presser about his blood pressure medications. She is also going to recheck his blood pressure at home. Right now, CS believes she has enough support at home. She will reach out if she wishes to have a care consultation with our social work team. Follow-up scheduled with Dr. Reagan in January 2025. Atherosclerotic heart diseas e of [place] coronary artery with other forms of angina pectoris 06/08/2023 Abnormal cardiovascular function 06/08/2023 CAD (coronary artery disease) 06/08/2023 Chest pain 06/08/2023 Diabetes mellitus 06/08/2023 Dyspnea on exertion 06/08/2023 Hx of CABG 06/08/2023 Pure hypercholesterolemia 06/08/2023 Right bundle branch block 06/08/2023 Stenosis of carotid artery 06/08/2023 Primary hypertension 03/19/2023 Hyperlipidemia 03/19/2023 Type 2 diabetes mellitus wit hout complication, with long-term current use of insulin 03/19/2023 NPH (normal pressure hydrocephalus) 01/12/2023 Herbicide poisoning 02/17/2017 Degeneration of intervertebral disc of cervical region 01/17/2017 Spinal enthesopathy 12/08/2016 Sleep apnea syndrome 11/27/2016 Muscle spasms of neck 09/12/2016 Stenosis of intervertebral foramina 08/17/2016 Chronic pain 08/17/2016 Osteoarthritis of cervical spine 08/17/2016 Cervicalgia 08/15/2016 Immunizations Immunization Administration Dates Next Due Influenza, Quadrivalent, Hig h Dose, Preservative Free, Intrr 08/09/2020 Influenza, Trivalent, High D ose, Split, Preservative Free, Intramuscular 10/07/2019 Influenza, Trivalent, IM (MDV) 08/22/2008 Influenza, Unspecified 09/09/2022 Tdap 02/16/2018 Surgical History Surgery Date Site/Laterality Comments CORONARY ARTERY BYPASS GRAFT Coronary Artery Surgery - (Added by TW Conv) GA PRQ TRLUML CORONARY STENT W/ANGIO ADDL ART/BRNCH Cath Placement Of Stent 2 - (Added by TW Conv) GA CHOLECYSTECTOMY Cholecystectomy - (Added by TW Conv) CATARACT EXTRACTION Cataract Surgery - (Added by TW Conv) NERVE BLOCK Nerve Block - Bilateral MBB #1 at C3, C4, 2nd OccipitaL NERVE (Added by TW Conv) LUMBAR PUNCTURE WO INJECTION , DIAGNOSTIC 01/12/2023 N/A Medical History Medical History Date Comments Personal history of other di seases of the nervous system and sense organs History of hearing loss - (Added by TW Conv) Dysphonia Hoarseness - (Ad ded by TW Conv) Personal history of other di seases of the circulatory system History of hypertension - (A dded by TW Conv) Personal history of other sp ecified conditions History of heartburn - (Adde d by TW Conv) Personal history of other di seases of the musculoskeletal system and connective tissue History of arthritis - (Adde d by TW Conv) Personal history of other en docrine, nutritional and metabolic disease History of diabetes mellitus - (Added by TW Conv) Personal history of other me ntal and behavioral disorders History of depression - (Add ed by TW Conv) Type 2 diabetes mellitus (HCC) Depression Hypertension Sleep apnea Hyperlipidemia 03/19/2023 Family History Medical History Relation Name Comments Heart attack Brother Heart attack Father Heart disease Father Anesthesia problems Neg Hx Relation Name Status Comments Brother Father Social History Tobacco Use Types Packs/Day Years Used Date Smoking Tobacco: Former Cigarettes 2 18 1 967 - 1984 Smokeless Tobacco: Never Tobacco Cessation:Counseling Given: Not Answered AUDIT-C Answer Date Recorded Q1: How often do you have a drink containing alc ohol? Monthly or less 06/16/2023 Q2: How many drinks containi ng alcohol do you have on a typical day when you are drinking? 1 or 2 06/16/2023 Q3: How often do you have si x or more drinks on one occasion? Less than monthly 06/16/2023 Personal Safety Answer Date Recorded Getting School Help Needed Denies 11/17 Sex and Gender Information Value Date Recorded Sex Assigned at Not on file Legal Sex Male 8:29 AM WEDDING DESIGNER Gender Identity Not on file Sexual Orientation Not on file Occupation Industry Job Start Date Job End Date Retired Not on file Not on file Not on file Obstetrics History Last Filed Vital Signs Vital Sign Reading Time Taken Comments Blood Pressure 116/74 10/27/2024 12:40 PM WEDDING DESIGNER Pulse 53 10/27/2024 12:40 PM WEDDING DESIGNER Temperature 37.2 C (99 F) 07/04/2024 2:15 PM CDT Respiratory Rate 17 01/16/2023 5:20 AM WEDDING DESIGNER Oxygen Saturation 96% 10/27/2024 12:40 PM WEDDING DESIGNER Inhaled Oxygen Concentration - - Weight 83.5 kg (184 lb) 10/27/2024 12:40 PM WEDDING DESIGNER Height 175.3 cm (5' 9 ) 10/27/2024 12:40 PM WEDDING DESIGNER Body Mass Index 27.17 10/27/2024 12:40 PM WEDDING DESIGNER Plan of Treatment Health Maintenance Due Date Last Done Comments Albumin Creatinine Ratio, Urine 1950 Colon Cancer Screening-Colonoscopy 1950 Depression Screening 1950 Hepatitis C Screening 1950 Dilated Eye Exam 1950 Foot Exam 1950 Hepatitis B Screening 1968 Well Visit 65+ 2015 Hemoglobin A1C 07/15/2023 01/12/2023 Lipid Panel 01/13/2024 01/12/2023, 08/09/2020 eGFR 01/13/2024 01/12/2023 Fall Risk Assessment 01/17/2024 01/16/2023 Zoster Vaccine (3 of 3) 03/03/2024 01/07/2024, 06/29 DTaP/Tdap/Td Vaccine (3 - Td or Tdap) 02/17/2028 02/16/2018, 08/11/2010 Pneumococcal vaccine 65+ Completed 018, 07/10/2015, 09/29/2011 Abdominal Aortic Aneurysm (A AA) Screen Completed 02/02/2024 Influenza Vaccine Completed 08/27/2024, , 09/09/2022, Additional history exists Medical Devices Implanted Type Area Bank Representative Device Identifier Shelf Expiration Date Model / Serial / Lot Medtronic Inc Strata Ii Csf Programmable Flow Control Ball Spring Mechanism [id number] - [id number] - [id number] Implanted:Qty: 1 on 01/15/2023 by Manuel Key MD at [facility] [employer] 03/01/2025 [id number] / [id number] / [id number] [facility] Bactiseal Hakim Shunt Kit Catheter Silicone Barium Sterile [id number] - [id number] - [id number] Implanted:Qty: 1 on 01/15/2023 by Manuel Key MD at [facility] [employer] [employer] 09/08/2023 [id number] / [id number] / [id number] Procedures Procedure Name Priority Date/Time Associated Diagnosis Comments EGFR Routine 01/12/2023 9:58 AM WEDDING DESIGNER HEMOGLOBIN A1C STAT 01/12/2023 9:58 AM WEDDING DESIGNER LIPID PANEL Routine 01/12/2023 9:58 AM WEDDING DESIGNER from Last 3 Months or Most Recently Relevant to Health Maintenance Results * eGFR (01/12/2023 9:58 AM WEDDING DESIGNER) eGFR >90 90 - 130 mL/min/1. 73 m2 [facility] Comment: Interpretive Data Reference Interval Normal >/= 90 mL/min/1.73m2 Mildly decreased* 60 - 89 mL/min/1.73m2 Mildly to moderately decreased 45 - 59 mL/min/1.73m2 Moderately to severely decreased 30 - 44 mL/min/1.73m2 Severely decreased 15 - 29 mL/min/1.73m2 Kidney Failure < 15 mL/min/1.73m2 *Relative to young adult level Estimated glomerular filtration rate is determined by the 2020 CKD-EPI equation recommended by the National Kidney Foundation (A Unifying Approach to GFR Estimation: Recommendations of the NKF-ASK Task Force on Reassessing the Inclusion of Race in Diagnosing Kidney Disease, JASN 2020). The CKD-EPI equation should not be used for patients with unstable renal function and has not been validated in children and those over 70. Current interpretive data was last reviewed 2021. Blood 01/12/2023 9:58 AM WEDDING DESIGNER 01/12/2023 10:10 AM WEDDING DESIGNER Radha Higginbotham NP LAB BLOOD ORDERABLES Final Result [facility] Department [place] [address] * (ABNORMAL) Hemoglobin A1c (01/12/2023 9:58 AM WEDDING DESIGNER) Hgb A1C 9.3(H) 4.0 - 5.6 % [facility] Estimated Average Glucose 220 mg/dL [facility] Comment: The ADA recommends reporting an estimated Average Glucose (eAG) with all Hemoglobin A1c results using the equation derived from a study of 507 normal and diabetic adults. Minority populations were underrepresented and children were not included. (Diabetes Care 2020; 43(S1): S66-S76). The eAG is not equivalent to a fasting glucose. Blood 01/12/2023 9:58 AM WEDDING DESIGNER 01/12/2023 10:15 AM WEDDING DESIGNER Manuel Key MD LAB BLOOD ORDERABLES Final Re sult [facility] Department [place] [address] * (ABNORMAL) Lipid panel (01/12/2023 9:58 AM WEDDING DESIGNER) Pathologist [facility] Cholesterol 90 30 - 199 mg/dL [facility] Comment: Interpretive Data Ages < or = 19 years Acceptable: <170 mg/dL Borderline high: 170-199 mg/dL High: >or= 200 mg/dL Ages > or = 20 years Desirable: <200 mg/dL Borderline high: 200-239 mg/dL High: >or= 240 mg/dL Literature References: 1. Expert Panel on Integrated Guidelines for Cardiovascular Health and Risk Reduction in Children and Adolescents. Pediatrics 2011;128:S213 2. NCEP Expert Panel. Circulation 2004;110:227 Current Interpretive Data was last revised on 2018. Triglycerides 102 <=149 mg/dL [facility] Comment: Interpretive Data Ages < or = 9 years Acceptable: <75 mg/dL Borderline high: 75-99 mg/dL High: >or= 100 mg/dL Ages 10 to 20 years Acceptable: <90 mg/dL Borderline high: 90-129 mg/dL High: >or= 130 mg/dL Ages > or = 20 years Desirable: <150 mg/dL Borderline high: 150-199 mg/dL High: 200-499 mg/dL Very high: >or= 499 mg/dL Literature References: 1. Expert Panel on Integrated Guidelines for Cardiovascular Health and Risk Reduction in Children and Adolescents. Pediatrics 2011;128:S213 2. NCEP Expert Panel. Circulation 2004;110:227 Current Interpretive Data was last revised on 2018. HDL 36(L) >=40 mg/dL [facility] Comment: Interpretive Data Ages < or = 19 years Acceptable: >45 mg/dL Borderline low: 40-45 mg/dL Low: <40 mg/dL Ages > or = 20 years Desirable: >or= 60 mg/dL Low: <40 mg/dL Literature References: 1. Expert Panel on Integrated Guidelines for Cardiovascular Health and Risk Reduction in Children and Adolescents. Pediatrics 2011;128:S213 2. NCEP Expert Panel. Circulation 2004;110:227 Current Interpretive Data was last revised on 2018. LDL, calculated 34 <=129 mg/dL [facility] Comment: Interpretive Data Ages < or = 19 years Acceptable: <110 mg/dL Borderline high: 110-129 mg/dL High: >or= 130 mg/dL Ages > or = 20 years Optimal: <100 mg/dL Near optimal: 100-129 mg/dL Borderline high: 130-159 mg/dL High: >160 mg/dL Literature References: 1. Expert Panel on Integrated Guidelines for Cardiovascular Health and Risk Reduction in Children and Adolescents. Pediatrics 2011;128:S213 2. NCEP Expert Panel. Circulation 2004;110:227 Current Interpretive Data was last revised on 2018. Non-HDL Cholesterol 54 mg/dL [facility] Comment: Interpretive Data Ages < or = 19 years Acceptable: <120 mg/dL Borderline high: 120-144 mg/dL High: >145 mg/dL Ages > or = 20 years When triglycerides are >200 mg/dL, Non-HDL cholesterol is a secondary target of therapy with treatment goals that are 30 mg/dL greater than the LDL cholesterol target. Literature References: 1. Expert Panel on Integrated Guidelines for Cardiovascular Health and Risk Reduction in Children and Adolescents. Pediatrics 2011;128:S213 2. NCEP Expert Panel. Circulation 2004;110:227 Current Interpretive Data was last revised on 2018. Chol/HDL ratio 3 [facility] Blood 01/12/2023 9:58 AM WEDDING DESIGNER 01/12/2023 10:10 AM WEDDING DESIGNER us Manuel Key MD LAB BLOOD ORDERABLES Final Re sult [facility] Department [place] [address] from Last 3 Months or Most Recently Relevant to Health Maintenance Insurance MEDICARE [facility] MEDICARE [facility] Advance Directives For more information, please contact: [phone] * Full Code (Latest Code Status on File) Date Activated Date Inactivated Comments 01/12/2023 9:02 AM 01/16/2023 7:38 PM Care Teams Wound Nurse Relationship Specialty Start Date End Date Vishal Ibarra DO PCP - General 01/15/17 Arlette Phillips NP [address] [place] [address] [place] [address] Internal Medicine 12/10/23
--- OUTSIDE RECORDS SUMMARY | 2025-02-23 12:48 | XMS_ITS | Referral Summary ---
Author Organization [facility] al Address [address] [place] [address] Care Team Providers Care Specialist Field Engineer Name Role Phone Vishal Ibarra DO Primary Care Provider [phone] Arlette Phillips INSURANCE RISK MANAGER Unavailable [phone] Allergies Active Allergy Reactions Criticality Noted [...] directed 4 Active mineral oil/petrolatum,w kristie (WHITE PETROLATUM-NUCLEAR MONITORING TECHNICIAN AL OIL OPHT) Administer into affected eye(s) [...] Continue following up with psychologist at the [facility]. His blood pressure was elevated today. He denies any signs of hypertensive crisis except for chest tightness. I explained if his chest tightness worsened, he should go to the nearest ER. CS states she will have him follow-up with his ticket marker about his blood pressure medications. She is also going to recheck his blood pressure at home. Right now, CS believes she has enough support at home. She will reach out if she wishes to have a care consultation with our social work team. Follow-up scheduled with Dr. Reagan in January 2025. Atherosclerotic heart diseas e of in[place] coronary artery with other forms of angina [...] (MDV) 08/22/2008 Influenza, Unspecified 09/09/2022 Tdap 02/16/2018 Social History Tobacco Use Types Packs/Day Years Used Date Smoking Tobacco: Former Cigarettes 2 18 1 967 - 1985 Smokeless Tobacco: Never Tobacco Cessation:Counseling Given: Not [...] on file Legal Sex Male 8:29 AM CELLULAR BIOLOGIST Gender Identity Not on file Sexual Orientation Not on file Occupation Industry Job Start Date Job End Date Retired Not on file Not on file Not on file Last Filed Vital Signs Vital Sign Reading Time Taken Comments Blood Pressure 116/74 10/27/2024 12:40 PM CELLULAR BIOLOGIST Pulse 53 10/27/2024 12:40 PM CELLULAR BIOLOGIST Temperature 37.2 C (99 F) 07/04/2024 2:15 PM CDT Respiratory Rate 17 01/16/2023 5:20 AM CELLULAR BIOLOGIST Oxygen Saturation 96% 10/27/2024 12:40 PM CELLULAR BIOLOGIST Inhaled Oxygen Concentration - - Weight 83.5 kg (184 lb) 10/27/2024 12:40 PM CELLULAR BIOLOGIST Height 175.3 cm (5' 9 ) 10/27/2024 12:40 PM CELLULAR BIOLOGIST Body Mass Index 27.17 10/27/2024 12:40 PM CELLULAR BIOLOGIST Plan of Treatment Not on file Medical Devices Implanted Type Area Chemical Educator Device Identifier Shelf Expiration Date Model / Serial / Lot Medtronic Inc Strata Ii Csf Programmable Flow Control Ball Spring Mechanism [id number] - [id number] - [id number] Implanted:Qty: 1 on 01/15/2023 by Manuel Key MD at [facility] [employer] 03/01/2025 [id number] / [id number] / [id number] [facility] Bactiseal Hakim Shunt Kit Catheter Silicone Barium Sterile [id number] - [id number] - [id number] Implanted:Qty: 1 on 01/15/2023 by Manuel Key MD at [facility] [employer] 09/08/2023 [id number] / [id number] / [id number] Procedures Procedure Name Priority Date/Time Associated Diagnosis Comments EGFR Routine 01/12/2023 9:58 AM CELLULAR BIOLOGIST HEMOGLOBIN A1C STAT 01/12/2023 9:58 AM CELLULAR BIOLOGIST LIPID PANEL Routine 01/12/2023 9:58 AM CELLULAR BIOLOGIST from Last 3 Months or Most Recently Relevant to Health Maintenance Results * eGFR (01/12/2023 9:58 AM CELLULAR BIOLOGIST) eGFR >90 90 - 130 mL/min/1. 73 [...] of Race in Diagnosing Kidney Disease, JASN 202). The CKD-EPI equation should not be used for patients with unstable renal function and has not been validated in children and those over 70. Current interpretive data was last reviewed 2021. Blood 01/12/2023 9:58 AM CELLULAR BIOLOGIST 01/12/2023 10:10 AM CELLULAR BIOLOGIST Radha Higginbotham NP LAB BLOOD ORDERABLES Final Result [facility] Department of Laboratories [place], [place] [id number] * (ABNORMAL) Hemoglobin A1c (01/12/2023 9:58 AM CELLULAR BIOLOGIST) Hgb A1C 9.3(H) 4.0 - 5.6 % [facility] Estimated Average Glucose 220 mg/dL [facility] Comment: The ADA recommends reporting an estimated Average Glucose (eAG) with all Hemoglobin A1c results using the equation derived from a study of 507 normal and diabetic adults. Minority populations were underrepresented and children were not included. (Diabetes Care 2020; 43(S1): S66-S76). The eAG is not equivalent to a fasting glucose. Blood 01/12/2023 9:58 AM CELLULAR BIOLOGIST 01/12/2023 10:15 AM CELLULAR BIOLOGIST us Manuel Key MD LAB BLOOD ORDERABLES Final Re sult [facility] Department [place] [address] * (ABNORMAL) Lipid panel (01/12/2023 9:58 AM CELLULAR BIOLOGIST) Cholesterol 90 30 - 199 mg/dL [facility] Comment: Interpretive Data Ages < or [...] revised on 2018. Triglycerides 102 <=149 mg/dL [facility] Comment: Interpretive Data Ages < or [...] revised on 2018. HDL 36(L) >=40 mg/dL [facility] Comment: Interpretive Data Ages < or = [...] on 2018. LDL, calculated 34 <=129 mg/dL [facility] Comment: Interpretive Data Ages < or = [...] revised on 2018. Non-HDL Cholesterol 54 mg/dL [facility] Comment: Interpretive Data Ages < or [...] last revised on 2018. Chol/HDL ratio 3 [facility] Blood 01/12/2023 9:58 AM CELLULAR BIOLOGIST 01/12/2023 10:10 AM CELLULAR BIOLOGIST us Manuel Key MD LAB BLOOD ORDERABLES Final Re sult [facility] Department [place] [address] from Last 3 Months or Most Recently Relevant to Health Maintenance Insurance MEDICARE [facility] MEDICARE [facility] FEDERAL Advance Directives For more information, please contact: [phone] * Full Code (Latest Code Status on File) Date Activated Date Inactivated Comments 01/12/2023 9:02 AM 01/16/2023 7:38 PM Care Teams Specialist Field Engineer Relationship Specialty Start Date End Date Vishal Ibarra DO PCP - General 01/15/17 Arlette Phillips NP [address] [place] [address] DR TERRY [address] [place] [id number] Internal Medicine 12/10/23
[2025-02-23 19:22] LABS: Basophils Absolute Auto 0.1 K/mm3 (0.0-0.1); Basophils Percent Auto 1.1 % (0.2-1.2); Creatinine Urine 114.4 mg/dL; Eosinophils Absolute Auto 0.4 K/mm3 (0-0.3); Eosinophils Percent Auto 5.9 % (0-4.4); Hematocrit 47.8 % (42.0-52.0); Immature Granulocyte Absolute 0.03 K/mm3 (0.00-0.031); Immature Granulocyte Percent A 0.4 % (0-0.5); Lymphocytes Absolute Auto 1.02 K/mm3 (0.9-3.2); Mean Corpuscular HGB Conc 33.5 g/dl (32-36); Mean Corpuscular Hemoglobin 31.2 pg (26-34); Mean Corpuscular Volume 93.2 fl (80-100); Mean Platelet Volume 10.4 fl (7.4-10.4); Monocytes Absolute Auto 0.6 K/mm3 (0.1-0.6); Monocytes Percent Auto 7.5 % (2.6-8.5); Neutrophils Absolute Auto 5.2 K/mm3 (1.3-6.7); Neutrophils Percent Auto 71.1 % (45.5-73.1); Platelet Count Result 289 k/mm3 (150-375); Red Blood Count 5.13 M/mm3 (4.6-6.20); Red Cell Distribution Width 13.4 % (11.5-14.5); White Blood Count 7.3 K/mm3 (4.5-10.0)
[2025-02-23 19:25] LABS: MALB Creatinine Ratio 7.7 mg/g (0-30); Microalbumin Urine Random 8.8 mg/L (0-16.7)
[2025-02-23 20:05] LABS: Alanine Aminotransferase 76 U/L (6-50); Albumin Level 3.7 g/dL (3.5-5.1); Alkaline Phosphatase 72 U/L (38-126); Anion Gap 6 mmol/L (4-12); Aspartate Amino Transferase 48 U/L (17-59); Bilirubin,Total 0.8 mg/dL (0.2-1.3); Blood Urea Nitrogen 12 mg/dL (9-20); Calcium 8.9 mg/dL (8.4-10.2); Carbon Dioxide 32 mmol/L (22-30); Chloride 100 mmol/L (98-107); Cholesterol 114 mg/dL (0-200); Estimated Glomerular Filt Rate > 60; Glucose 153 mg/dL (65-110); HDL Direct 38 mg/dL; Potassium 4.2 mmol/L (3.4-5.0); Sodium 138 mmol/L (137-145); Triglycerides 114 mg/dL (<150)
[2025-02-23 20:16] LABS: LDL Cholesterol Direct 45 mg/dL
[2025-02-23 20:40] LABS: Hemoglobin A1C 8.3 % (<5.7)
== END 2025-02-23 12:32 | disposition home or self-care (01) ==
LOC: ANHGOSHLAB 12:33
PROVIDERS: PCP Internal Medicine; Visit Provider Internal Medicine
DX: I25.811 Atherosclerosis of native coronary artery of transplanted heart without angina pectoris (principal); E11.9 Type 2 diabetes mellitus without complications; Z79.4 Long term (current) use of insulin
CPT/HCPCS: 36415; 80053; 80061; 82043; 82172; 82728; 83036; 85025

== ENCOUNTER 2025-09-19 14:01 | Outpatient (CLI) | payer MEDICARE, BC, SELFPAY ==
--- OUTSIDE RECORDS SUMMARY | 2025-09-19 14:08 | XMS_ITS | Clinical Summary ---
Author Organization [facility] Address Formerly [facility] [place] [address] Care Team Providers Care Professor Of Visual Arts Name Role Phone MereVishal aponte Ayde DO Primary Care Provider [phone] Albino Reagan MD Unavailable [phone] Active Problems Problem Noted Date Diagnosed Date Weakness 09/20/2024 Abnormality of gait and mobility 09/20/2024 Idiopathic normal pressure hydrocephalus 024 Frequent falls 12/18/2023 Social History Tobacco Use Types Packs/Day Years Used Date Smoking Tobacco: Never Assessed Sex and Gender Information Value Date Recorded Sex Assigned at Male 11/22/2024 1:47 PM ALLEY WORKER Legal Sex Male 5:39 PM CDT Gender Identity Not on file Sexual Orientation Not on file Plan of Treatment Health Maintenance Due Date Last Done Comments Colorectal Cancer Screening Colonoscopy (10 Years) 1950 Annual Medicare Wellness Visit 2015 Zoster Vaccines (3 of 3) 03/03/2024 01/07/2024, 06/10 PHQ-2 (Physician [place]) 11/09/2024 COVID-19 Vaccine ( - season) 2025 08/27/2024, 08/28/2023, 09/06/2021, Additional history exists Influenza Adult (#1) 2025 08/27/2024, 09/09/2022, 08/09/2022, Additional history exists DTaP, Tdap and Td Vaccines (3 - Td or Tdap) 02/17/2028 02/16/2018, 08/11/2010 Pneumococcal Vaccine: 50+ Years Completed 09/24/2018, 07/10/2015 Hepatitis C Completed 06/30/2019 RSV Immunization or 60+ Years Completed 09/14/2024 Hepatitis A Vaccines Aged Out No long er eligible based on patient's age to complete this topic Meningococcal B Vaccine Aged Out No l [...] VE NON-REACTI VE 06/30/2019 2:52 PM CDT [facility] 06/30/2019 11:0 4 AM CDT Vishal Ibarra DO LABORATORY Final Resul t [facility] [address] [place] [address], from Last 3 Months or Most Recently Relevant to Health Maintenance Insurance MEDICARE [facility] Care Teams Professor Of Visual Arts Relationship Specialty Start Date End Date Vishal Ibarra DO [address] [facility] [address] [place] [address] PCP - General INTERNAL MEDICINE 06/23/19 Albino Reagan MD [address] [place] [address] NEUROLOGY 12/23/23
--- OUTSIDE RECORDS SUMMARY | 2025-09-19 14:08 | XMS_ITS | Clinical Summary ---
Author Organization [facility] al Address [address] [place] [address] Care Team Providers Care Gang Tailer Name Role Phone Vishal Ibarra DO Primary Care Provider [phone] Arlette Phillips GAS SINGER Unavailable [phone] Allergies Active Allergy Reactions Criticality Noted [...] directed 4 Active mineral oil/petrolatum,w kristie (WHITE PETROLATUM-PATIENT INSURANCE CLERK AL OIL OPHT) Administer into affected eye(s) [...] Continue following up with psychologist [facility] the [place]. His blood pressure was elevated today. He denies any signs of hypertensive crisis except for chest tightness. I explained if his chest tightness worsened, he should go to the nearest ER. CS states she will have him follow-up with his social media sr strategy manager about his blood pressure medications. She is also going to recheck his blood pressure at home. Right now, CS believes she has enough support at home. She will reach out if she wishes to have a care consultation with our social work team. Follow-up scheduled with Dr. Reagan in January 2025. 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 Gender Identity Not on file Sexual Orientation Not on file Occupation Industry Job Start Date Job End Date Retired Not on file Not on file Not on file Last Filed Vital Signs Vital Sign Reading Time Taken Comments Blood Pressure 116/74 10/27/2024 12:40 PM WALL TAPER HELPER Pulse 53 10/27/2024 12:40 PM WALL TAPER HELPER Temperature 37.2 C (99 F) 07/04/2024 2:15 PM CDT Respiratory Rate 17 01/16/2023 5:20 AM WALL TAPER HELPER Oxygen Saturation 96% 10/27/2024 12:40 PM WALL TAPER HELPER Inhaled Oxygen Concentration - - Weight 83.5 kg (184 lb) 10/27/2024 12:40 PM WALL TAPER HELPER Height 175.3 cm (5' 9) 10/27/2024 12:40 PM WALL TAPER HELPER Body Mass Index 27.17 10/27/2024 12:40 PM WALL TAPER HELPER Plan of Treatment Health Maintenance Due Date [...] Vaccine (3 of 3) 03/03/2024 01/07/2024, 06/29 Influenza Vaccine (#1) 2025 , 08/28/2023, 09/09/2022, Additional history exists DTaP/Tdap/Td Vaccine (3 - Td or Tdap) 02/17/2028 02/16/2018, 08/11/2010 Pneumococcal vaccine 65+ Completed 018, 07/10/2015, 09/29/2011 Abdominal Aortic Aneurysm (A AA) Screen Completed 02/02/2024 Medical Devices Implanted Type Area Work Environment Safety Inspector Device Identifier Shelf Expiration Date Model / Serial / Lot [employer] Strata Ii Csf Programmable Flow Control Ball Spring Mechanism [id number] - [id number] - [id number] Implanted:Qty: 1 on 01/15/2023 by Manuel Key MD at [facility] [employer] 03/01/2025 [id number] / [id number] / [id number] [facility] Bactiseal Hakim Shunt Kit Catheter Silicone Barium Sterile [id number] - [id number] - [id number] Implanted:Qty: 1 on 01/15/2023 by Manuel Key MD at [facility] [employer] 09/08/2023 [id number] / [id number] / [id number] Procedures Procedure Name Priority Date/Time Associated Diagnosis Comments EGFR Routine 01/12/2023 9:58 AM WALL TAPER HELPER HEMOGLOBIN A1C STAT 01/12/2023 9:58 AM WALL TAPER HELPER LIPID PANEL Routine 01/12/2023 9:58 AM WALL TAPER HELPER from Last 3 Months or Most Recently Relevant to Health Maintenance Results * eGFR (01/12/2023 9:58 AM WALL TAPER HELPER) eGFR >90 90 - 130 mL/min/1. 73 [...] last reviewed 2021. Blood 01/12/2023 9:58 AM WALL TAPER HELPER 01/12/2023 10:10 AM WALL TAPER HELPER Radha Higginbotham NP LAB BLOOD ORDERABLES Final Result [facility] Department [place] [address] * (ABNORMAL) Hemoglobin A1c (01/12/2023 9:58 AM WALL TAPER HELPER) Hgb A1C 9.3(H) 4.0 - 5.6 % [facility] Estimated Average Glucose 220 mg/dL [facility] Comment: The ADA recommends reporting an estimated Average Glucose (eAG) with all Hemoglobin A1c results using the equation derived from a study of 507 normal and diabetic adults. Minority populations were underrepresented and children were not included. (Diabetes Care 2020; 43(S1): S66-S76). The eAG is not equivalent to a fasting glucose. Blood 01/12/2023 9:58 AM WALL TAPER HELPER 01/12/2023 10:15 AM WALL TAPER HELPER Manuel Key MD LAB BLOOD ORDERABLES Final Re sult [facility] Department [place] [address] * (ABNORMAL) Lipid panel (01/12/2023 9:58 AM WALL TAPER HELPER) Pathologist [facility] Cholesterol 90 30 - 199 mg/dL [facility] Comment: Interpretive Data Ages < [...] revised on 2018. Triglycerides 102 <=149 mg/dL [facility] Comment: Interpretive Data Ages < [...] revised on 2018. HDL 36(L) >=40 mg/dL [facility] Comment: Interpretive Data Ages < [...] on 2018. LDL, calculated 34 <=129 mg/dL [facility] Comment: Interpretive Data Ages < [...] revised on 2018. Non-HDL Cholesterol 54 mg/dL [facility] Comment: Interpretive Data Ages < [...] last revised on 2018. Chol/HDL ratio 3 [facility] Blood 01/12/2023 9:58 AM WALL TAPER HELPER 01/12/2023 10:10 AM WALL TAPER HELPER us Manuel Key MD LAB BLOOD ORDERABLES Final Re sult [facility] Department [place] [address] from Last 3 Months or Most Recently Relevant to Health Maintenance Insurance [facility]ARE [facility]ARE [facility] Advance Directives For more information, please contact: [phone] * Full Code (Latest Code Status on File) Date Activated Date Inactivated Comments 01/12/2023 9:02 AM 01/16/2023 7:38 PM Care Teams Gang Tailer Relationship Specialty Start Date End Date Vishal Ibarra DO PCP - General 01/15/17 Arlette Phillips NP [address] [place] [address] [place] [address] Internal Medicine 12/10/23
--- OUTSIDE RECORDS SUMMARY | 2025-09-19 14:08 | XMS_ITS | Clinical Summary ---
Author Organization [facility] Address [address] [place] [address] Care Team Providers Care Shredding Machine Operator Name Role Phone Unavailable Primary Care Provider Unavailabl e Source Comments [facility],non-owned Affiliates and Associated Physician Practices is amultiple site organization consisting of ambulatory clinics and hospital sitesin [place], [place], [place] and [place]. This disclosure is being madepursuant to the Care Everywhere program and may not contain all information available regarding this patient. 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
[2025-09-19 18:55] LABS: Alanine Aminotransferase 47 U/L (6-50); Albumin Level 4.0 g/dL (3.5-5.1); Alkaline Phosphatase 67 U/L (38-126); Anion Gap 6 mmol/L (4-12); Aspartate Amino Transferase 71 U/L (17-59); Bilirubin,Total 0.5 mg/dL (0.2-1.3); Blood Urea Nitrogen 12 mg/dL (9-20); Calcium 9.0 mg/dL (8.4-10.2); Carbon Dioxide 31 mmol/L (22-30); Chloride 98 mmol/L (98-107); Estimated Glomerular Filt Rate > 60; Glucose 94 mg/dL (65-110); Potassium 4.2 mmol/L (3.4-5.0); Sodium 135 mmol/L (137-145); Total Protein 7.1 g/dL (6.3-8.2)
[2025-09-19 19:09] LABS: Hematocrit 45.4 % (42.0-52.0); Hemoglobin 15.4 g/dL (14.0-18.0); Immature Granulocyte Percent A 0.3 % (0-0.5); Lymphocytes Absolute Auto 1.19 K/mm3 (0.9-3.2); Mean Corpuscular HGB Conc 33.9 g/dl (32-36); Mean Corpuscular Hemoglobin 30.7 pg (26-34); Mean Corpuscular Volume 90.4 fl (80-100); Nucleated Red Blood Cells Absolute Auto 0.000 K/mm3 (0.0-0.012); Nucleated Red Blood Cells Perc 0.0 % (0.0-0.2); Platelet Count Result 287 k/mm3 (150-375); Red Blood Count 5.02 M/mm3 (4.6-6.20); White Blood Count 8.0 K/mm3 (4.5-10.0)
[2025-09-19 19:12] LABS: Hemoglobin A1C 7.4 % (<5.7)
[2025-09-19 19:19] LABS: Prostate Specific Antigen 1.0 ng/mL (< OR = 4.0)
[2025-09-19 19:30] LABS: MALB Creatinine Ratio 10.8 mg/g (0-30)
== END 2025-09-19 14:02 | disposition home or self-care (01) ==
PROVIDERS: PCP Internal Medicine; Visit Provider Internal Medicine
DX: I25.10 Atherosclerotic heart disease of native coronary artery without angina pectoris (principal); Z12.5 Encounter for screening for malignant neoplasm of prostate; I10 Essential (primary) hypertension; E11.59 Type 2 diabetes mellitus with other circulatory complications; R74.8 Abnormal levels of other serum enzymes
CPT/HCPCS: 36415; 80053; 82043; 83036; 84153; 85025; G0103